=== PATIENT | male | born 1955 | race Caucasian/White ===

== ENCOUNTER 2017-02-10 08:27 | Inpatient (IN) | payer MEDICARE ==
--- NOTE | ~2017-02-10 | HEMODYNAMI ---
PATIENT:SHA LAY JR MEDICAL RECORD: [id number] : 53 LOCATION:[facility] [address] [id number] ADMISSION DATE: 02/10/17 Generatedon:02/12/201715:52 Patient name: SHA LAY Patient #: [id number] SSN: D OB: 1955 Date of study: 02/12/2017 Page: Of Hemodynamic Procedure Report Patient Data Patient Demographics Procedure consent was obtained First Name: SHA Gender: Male Last Name: ROSANNE Suffix: Patient #: [id number] : 1955 Age: 61 year(s) Accession #: Race: Unknown [id number] Additional ID: [id number] Contact details Address: [address] [place] [address] [address] State: [place] City: [place] Zip code: [address] Admission Admission Data Admission Date: 02/10/2017 Admission Time: 12:48 Room #: .2130 Procedure Procedure Types Cath Procedure Diagnostic Procedure LHC LHC w/Coronaries Miscellaneous Procedures Moderate Sedation up to 15 minutes Peripheral Cath Diagnostic Procedure Abd/Extremity Aortagram Procedure Description Procedure Date Procedure Date: 02/12/2017 Procedure Start Time: 15:10 Procedure End Time: 15:49 Procedure Staff Name Function Issa Joseph MD Performing Physician Scarlett Neves RT Scrub Oz Benitez RN Nurse Isaias Kee RT Monitor Yanely Gieger RT Monitor Reji Hernandez RN Nurse Procedure Data Cath Procedure Fluoroscopy Diagnostic fluoroscopy Total fluoroscopy Time: 5.5 time: 5.5 min min Diagnostic fluoroscopy Total fluoroscopy dose: 710 dose: 710 mGy mGy Contrast Material Contrast Material Type Amount (ml) Isovue 300 103 Entry Location Entry Primary Successful Side Size Upsize Upsize Entry Closure Lyle ccessful Closure Location (Fr) 1 (Fr) 2 (Fr) Remarks Device Remarks Radial Right 6 Fr Mechanical TR band artery Short Compression Femoral Left 5 Fr Exoseal artery Femoral Right 5 Fr Exoseal artery Estimated blood loss: 10 ml Diagnostic catheters Device Type Used For End Catheter Placement Terumo 5Fr Uday 110cm Procedure catheter Cordis 5Fr 3DRC Catheter Procedure (MP) Cordis 5Fr 3DRC Catheter Procedure (MP) Cordis 5Fr JL 4.0 Procedure Catheter (MP) Cordis 5Fr Pigtail Ventriculography Catheter (MP) Procedure Complications No complications Procedure Medications Medication Administration Route Dosage 0.9% NaCl I.V. 100 ml/hr Oxygen NC 2 l/min Heparin Flush Bag added to field 2 bags (1000units/500ml NS) Lidocaine 2% added to field 20 Radial Cocktail 1 syringe (Verapomil 2mg/Nitro 400mcg/Heparin 1500units) Versed I.V. 1 mg Fentanyl I.V. 50 mcg Versed I.V. 0.5 mg Fentanyl I.V. 25 mcg Radial Cocktail I.A. 1 syringe (Verapomil 2mg/Nitro 400mcg/Heparin 1500units) Fentanyl I.V. 25 mcg Fentanyl I.V. 25 mcg Hemodynamics Rest Heart Rate: 101 (bpm) Pressure Samples Time Site Value (mmHg) Purpose Heart Use Rate(bpm) 15:36 LV 109/9,23 Snapshot 92 15:37 AO 123/73(94) Pullback 92 15:37 LV 116/13,29 Pullback 92 Gradients Valve Time Site 1 Site 2 Mean SEP/DFP Peak To Heart Use (mmHg) (sec/min) Peak Rate (mmHg) (bpm) Aortic 15:37 LV AO 92 Aortic 15:37 LV AO 0 7 0 92 116/13,29 123/73(94) Calculations Valve P-P Mean Valve Index Valve Source Name Gradient Area Flow (cm2) Aortic 0 0 0 0 Snapshots Pre Cath Intra NCS Post Cath Vital Signs Time Heart Resp SPO2 etCO2 NIBP (mmHg) Rhythm Pain Sedation Rate (ipm) (%) (mmHg) Status Level (bpm) 14:56:39 101 32 98 33.1 117/84(99) NSR 0 (11) 10(A) , No pain 15:01:14 100 30 100 9 114/86(102) NSR 0 (11) 10(A) , No pain 15:05:50 97 24 96 12.8 111/71(93) NSR 0 (11) 10(A) , No pain 15:10:24 96 19 76 21 109/77(89) NSR 0 (11) 10(A) , No pain 15:15:01 94 22 89 0 107/67(85) NSR 0 (11) 10(A) , No pain 15:19:36 92 22 97 0 111/69(90) NSR 0 (11) 10(A) , No pain 15:24:10 92 19 94 0 109/74(95) NSR 0 (11) 10(A) , No pain 15:28:44 93 23 94 0 106/76(89) NSR 0 (11) 10(A) , No pain 15:33:19 93 16 95 10.5 111/67(86) NSR 0 (11) 10(A) , No pain 15:37:53 92 18 94 10.5 105/76(92) NSR 0 (11) 10(A) , No pain 15:42:26 88 19 97 0 107/74(89) NSR 0 (11) 10(A) , No pain 15:46:58 91 17 98 24.1 108/75(92) NSR 0 (11) 10(A) , No pain Medications Time Medication Route Dose Verified Delivered Reason Notes Effectiveness by by 15:00:56 0.9% NaCl I.V. 100 Oz Oz Per ml/hr Emmanuel Benitez physician RN RN 15:01:10 Oxygen NC 2 l/min Oz Oz Per Emmanuel Benitez physician RN RN 15:01:30 Heparin Flush added 2 bags Oz Oz used for Bag to Emmanuel Benitez procedure (1000units/500ml [facility] RN RN NS) 15:01:43 Lidocaine 2% added 20ml Oz Oz for local to vial Lorigan Emmanuel anesthetic field RN RN 15:02:29 Radial Cocktail 1 Oz Zo for (Verapomil syringe Lorigan Lorigan vasodilation 2mg/Nitro RN RN 400mcg/Heparin 1500units) 15:02:59 Versed I.V. 1 mg Oz Oz for sedation Emmanuel Benitez RN RN 15:03:11 Fentanyl I.V. 50 mcg Oz Oz for sedation Emmanuel Benitez RN RN 15:13:20 Versed I.V. 0.5 mg Oz Oz for sedation Emmanuel Benitez RN RN 15:13:30 Fentanyl I.V. 25 mcg Oz Oz for sedation Emmanuel Benitez RN RN 15:15:09 Radial Cocktail I.A. 1 Oz Issa for (Verapomil syringe Emmanuel Joseph MD vasodilation 2mg/Nitro RN 400mcg/Heparin 1500units) 15:26:17 Fentanyl I.V. 25 mcg Oz Oz for sedation Emmanuel Benitez RN RN 15:34:41 Fentanyl I.V. 25 mcg Oz Oz for sedation Emmanuel Benitez RN veterinary practitioner Log Time Note 14:30:22 Isaias Kee RT(R) sent for patient. Start room use. 14:36:24 Time tracking: Regular hours 14:36:28 Plan of Care:Hemodynamics will remain stable., Cardiac rhythm will remain stable., Comfort level will be maintained., Respiratory function will remain adequate., Patient/ family verbilizes understanding of procedure., Procedure tolerated without complication., Recovers from procedure without complications.. 14:50:00 Patient received from Med II to CCL 1 Alert and oriented. Tansferred to table in Supine position. 14:50:03 Warm blankets applied, and prem hugger turned on for patient comfort. 14:50:04 Correct patient and procedure confirmed by team. 14:50:10 Signed procedure consent form obtained from patient. 14:50:11 ECG and BP/O2 sat monitors applied to patient. 14:55:51 Vital chart was started 14:55:53 Baseline sample Acquired. 14:55:56 Rhythm: sinus rhythm 14:55:57 Full Disclosure recording started 14:56:03 H&P Date Dictated: 02/11/2017 Within 30 days and on chart.. 14:56:10 Pre-procedure instructions explained to patient. 14:56:10 Pre-op teaching completed and patient verbalized understanding. 14:56:12 Family unavailable. 14:56:13 Patient NPO since Midnight. 14:56:15 Is the patient allergic to Iodine/contrast media? No. 14:56:18 Is patient on blood thinner?No 14:57:07 Patient diabetic? No. 14:57:11 Previous problem with sedation/anesthesia? No ? 14:57:13 Snore? No 14:57:16 Sleep apnea? No 14:57:19 Deviated septum? No 14:57:22 Opens mouth fully? Yes 14:57:25 Sticks out tongue? Yes 14:57:28 Airway obstruction? No ? 14:57:35 Dentures? No ? 14:57:39 Pre procedure: right dorsailis pedis pulse 1+ Palpable, but thready & weak; easily obliterated 14:57:52 Patient pain scale 0/10 ?. 14:58:06 IV patent on arrival in left forearm with 0.9% NaCl at O. 14:58:22 Lab results completed and on chart. 14:58:39 Right Radial & Right Groin area was prepped with chlora-prep and draped in sterile fashion 14:58:42 Alarms reviewed by R. N. 14:58:42 Sharps counted by scrub and verified by R.N. 14:59:26 --------ALL STOP TIME OUT------ 14:59:27 Final Timeout: patient, procedure, and site verified with staff and physician. All members of the team are in agreement. 14:59:33 Right Radial & Right Groin site verified by team. 14:59:40 Physical assessment completed. ASA score P 2 - A patient with mild systemic disease as per Issa Joseph MD. 14:59:44 Sedation plan: IV Moderate Sedation Versed, Fentanyl 15:00:56 0.9% NaCl 100 ml/hr I.V. was administered by Oz Benitez RN; Per physician; 15:01:10 Oxygen 2 l/min NC was administered by Oz Benitez RN; Per physician; 15:01:30 Heparin Flush Bag (1000units/500ml NS) 2 bags added to field was administered by Oz Benitez RN; used for procedure; 15:01:43 Lidocaine 2% 20ml vial added to field was administered by Oz Benitez RN; for local anesthetic; 15:02:29 Radial Cocktail (Verapomil 2mg/Nitro 400mcg/Heparin 1500units) 1 syringe was administered by Oz Benitez RN; for vasodilation; 15:02:59 Versed 1 mg I.V. was administered by Oz Benitez RN; for sedation; 15:03:11 Fentanyl 50 mcg I.V. was administered by Oz Benitez RN; for sedation; 15:10:26 Procedure started. 15:10:36 Local anesthetic to right radial artery with Lidocaine 2% by Issa Joseph MD.INITIAL ACCESS ONLY 15:12:31 A 6 Fr Short sheath was inserted into the Right Radial artery 15:13:20 Versed 0.5 mg I.V. was administered by Oz Benitez RN; for sedation; 15:13:30 Fentanyl 25 mcg I.V. was administered by Oz Benitez RN; for sedation; 15:14:49 A Terumo 5Fr Uday 110cm catheter was advanced over the wire and used for Procedure. 15:15:09 Radial Cocktail (Verapomil 2mg/Nitro 400mcg/Heparin 1500units) 1 syringe I.A. was administered by Issa Joseph MD; for vasodilation; 15:15:24 Unable to advance catheter due to radial loop. Moving to Femoral approach. 15:15:34 Local anesthetic to right femoral artery with Lidocaine 2% by Issa Joseph MD.ADDITIONAL ACCESS 15:15:39 Use device set Radial Dx 15:15:41 Tegaderm 4 x 4 opened to sterile field. 15:15:42 Acist Manifold opened to sterile field. 15:15:42 Acist Hand Control opened to sterile field. 15:15:43 Acist Syringe opened to sterile field. 15:15:44 Medline Cath Pack opened to sterile field. 15:15:44 Bag Decanter opened to sterile field. 15:15:44 Terumo 6Fr Slender Glidesheath opened to sterile field. 15:15:45 St Aristeo 260cm J .035 wire opened to sterile field. 15:15:45 MBrace Wrist Support opened to sterile field. 15:15:55 Terumo 5Fr [place] Sheath opened to sterile field. 15:15:59 Use device set Multipack Set 15:16:01 Diagnostic Infinity 5Fr Multipack catheter opened to sterile field. 15:20:03 A 5 Fr sheath was inserted into the Left Femoral artery 15:21:00 A 5 Fr sheath was inserted into the Right Femoral artery 15:21:00 Terumo ANGLE 260cm glide wire opened to sterile field. 15:21:11 A Cordis 5Fr 3DRC Catheter (MP) was advanced over the wire and used for Procedure. 15:21:17 glide wire wire advanced. 15:22:40 right illiac occluded. 15:23:15 Catheter removed. 15:23:32 Left groin area was prepped with chlora-prep and draped in sterile fashion 15:23:48 Local anesthetic to left femerol artery with Lidocaine 2% by Issa Joseph MD.ADDITIONAL ACCESS 15:26:17 Fentanyl 25 mcg I.V. was administered by Oz Benitez RN; for sedation; 15:28:07 Terumo 5Fr [place] Sheath opened to sterile field. 15:30:14 A Cordis 5Fr 3DRC Catheter (MP) was advanced over the wire and used for Procedure. 15:31:40 RCA angiography performed. 15:31:58 Catheter removed. 15:32:20 A Cordis 5Fr JL 4.0 Catheter (MP) was advanced over the wire and used for Procedure. 15:34:36 Catheter removed. 15:34:41 Fentanyl 25 mcg I.V. was administered by Oz Benitez RN; for sedation; 15:35:01 A Cordis 5Fr Pigtail Catheter (MP) was advanced over the wire and used for Ventriculography. 15:36:44 EF : 10 % 15:38:40 Abdominal Aortagram was performed. 15:41:26 Catheter removed. 15:42:01 Cordis 5Fr Exoseal opened to sterile field. 15:42:01 Cordis 5Fr Exoseal opened to sterile field. 15:42:02 Terumo TR Band Standard opened to sterile field. 15:42:41 Sheath removed intact; hemostasis achieved with Exoseal to the Left Femoral artery. 15:44:17 Sheath removed intact; hemostasis achieved with Exoseal to the Right Femoral artery. 15:45:42 Sheath removed intact; hemostasis achieved with Mechanical Compression to the Right Radial artery. 15:45:46 Procedure ended.(Physican Out) 15:46:39 Fluoroscopy time 05.50 minutes. 15:46:44 Fluoroscopy dose: 710 mGy 15:46:44 Flurop Dose total: 710 15:46:49 Contrast amount:Isovue 300 103ml. 15:46:51 Sharps counted by scrub and verified by R.N. 15:47:21 TR band inflated with 11cc of air. 15:47:24 Insertion/operative site no bleeding no hematoma. 15:47:28 Post-op/insertion site Right Femoral artery dressed using a 4 x 4 and Tegaderm. 15:47:32 Post-op/insertion site Left Femoral artery dressed using a 4 x 4 and Tegaderm. 15:47:36 Post Procedure Pulses reassessed and unchanged 15:47:45 Post-procedure physical assessment completed. ASA score P 2 - A patient with mild systemic disease as per Issa Joseph MD. 15:47:50 Post-procedure physical assessment completed. ASA score P 3 - A patient with severe systemic disease as per Issa Joseph MD. 15:47:56 Post procedure rhythm: unchanged. 15:47:59 Estimated blood loss: 10 ml 15:48:03 Post procedure instruction explained to patient.Patient verbalizes understanding. 15:48:48 Procedure type changed to Cath procedure, Diagnostic procedure, LHC, LHC w/Coronaries, Miscellaneous Procedures, Moderate Sedation up to 15 minutes, Peripheral Cath Diagnostic Procedure, Abd/Extremity, Aortagram 15:48:50 Procedure and supply charges have been captured, reviewed, submitted and are correct. 15:49:36 Procedure Complication : No complications 15:49:39 Vital chart was stopped 15:49:40 See physician's report for complete and final results. 15:49:41 Report given to Pre/Post Procedure Room. 15:49:46 Patient transfered to Pre/Post Procedure Room with Stretcher. 15:49:49 Procedure ended. 15:49:49 Full Disclosure recording stopped 15:49:52 End room use (Document Last) Device Usage Item Name Manufacture Quantity Catalog Hospital Part Current Minimal Lot# / Number Charge Number Stock Stock Serial# Code Terumo 5Fr Terumo 1 [id number] [id number] [id number] 817357 5 Uday 110cm catheter Tegaderm 4 3M 1 [id number] 588375 938934 5 x 4 Acist Acist 1 44802 786306 120858 090240 5 Manifold Medical [employer] Inc Acist Hand Acist 1 13395 818011 410756 141734 5 Control Medical Systems Inc Acist Acist 1 54057 845795 800717 664326 20 Syringe Medical Systems Inc Medline Cardinal 1 [id number] 714740 07773 301716 5 Cath Pack Health Bag Microtek 1 2001S [id number] 05924 262370 5 Decanter Medical Inc. Terumo 6Fr Terumo 1 [id number] 517722 367342 059777 [address] St Aristeo 1 [id number] 908096 726981 080499 30 260cm J .035 wire MBrace Advanced 1 140-0250-00 147748 00886 159607 5 Wrist Vascular Support Dynamics Terumo 5Fr Terumo 2 [id number] 326755 789192 382343 40 [place] Sheath Diagnostic Cardinal 1 [id number] 689100 95508 221368 30 Infinity Health 5Fr Multipack catheter Terumo Terumo 1 [id number] 344325 897712 351765 5 ANGLE 260cm glide wire Cordis 5Fr Cardinal 1 853844 5 3DRC Health Catheter (MP) Cordis 5Fr Cardinal 1 748031 5 JL 4.0 Health Catheter (MP) Cordis 5Fr Cardinal 1 815489 5 Pigtail Health Catheter (MP) Cordis 5Fr Cardinal 2 EX500 880350 429761 031474 10 Exoseal Health Terumo TR Terumo 1 [id number] 584641 255921 311888 40 Band Standard Signature Audit [place] Stage Time Signature Unsigned Intra-Procedure 02/12/2017 Yanely Geiger 3:52:36 PM RT(R) Signatures Monitor : Isaias Kee RT Signature : Date : Time : Monitor : Yanely Geiger Signature : RT Date : Time : [facility] [address] [place] [address]
[2017-02-10 09:20] LABS: ALKALINE PHOSPHATASE 121 U/L (46-116); ALT (SGPT) 20 U/L (10-68); CALC OSMOLALITY 276 mosm/kg (275-300); CALCIUM 9.2 mg/dL (8.5-10.1); CARBON DIOXIDE 26.9 mmol/L (21.0-32.0); CHLORIDE - SERUM 99 mmol/L (98-107); CREATININE - SERUM 0.9 mg/dL (0.6-1.3); GLUCOSE 98 mg/dL (74-106); POTASSIUM - SERUM 3.4 mmol/L (3.5-5.1); PROTEIN - SERUM 8.2 g/dL (6.4-8.2); SODIUM 140 mmol/L (136-145); UREA NITROGEN 7 mg/dL (7-18); eGFR NON AFRICAN AMERICAN > 90 mL/min (90-120)
[2017-02-10 09:27] LABS: INR 1.19 (0.85-1.17); PROTIME 14.9 SECONDS (11.6-15.0)
[2017-02-10 09:52] LABS: MAGNESIUM - SERUM 1.9 mg/dL (1.8-2.4); TROPONIN-I 0.034 ng/mL (0.000-0.060)
[2017-02-10 11:06] LABS: BASOPHILS 0.2 % (0-2); EOSINOPHILS 1.5 % (0-7); HEMATOCRIT 46.7 % (42.0-54.0); HEMOGLOBIN 15.4 g/dL (13.5-17.5); IMMATURE GRANULOCYTES 0.4 % (0-5); LYMPHOCYTES 17.9 % (15-50); MCH 36.2 pg (26.0-34.0); MCV 109.6 fL (80.0-100.0); MEAN PLATELET VOLUME 10.7 fL (7.4-10.4); MONOCYTES 8.4 % (2-11); NEUTROPHILS 71.6 % (40-80); RBC 4.26 10x6/uL (4.20-6.10); RDW 15.2 % (11.5-14.5); WBC 8.5 10x3/uL (4.8-10.8)
[2017-02-10 11:10] LABS: PLATELET COUNT 209 10x3/uL (130-400)
[2017-02-10 11:59] LABS: APPEARANCE CLEAR (CLEAR); COLOR DK YELLOW (YELLOW); SPECIFIC GRAVITY 1.015 (1.005-1.020)
[2017-02-10 12:00] LABS: BACTERIA MANY /hpf (NONE SEEN); BILIRUBIN NEGATIVE (NEGATIVE); EPITHELIAL CELLS 0-5 /hpf (0-5); GLUCOSE NEGATIVE (NEGATIVE); KETONE NEGATIVE (NEGATIVE); MUCUS <1+ /lpf (NONE SEEN); NITRITE NEGATIVE (NEGATIVE); PROTEIN NEGATIVE (NEGATIVE); WHITE CELLS - URINE 25-50 /hpf (0-5)
--- NOTE | 2017-02-10 14:08 | NUR ---
ARRIVE TO ROOM VIA WHEELCHAIR FROM ER. ALERT AND ORIENTED X4. AMBULATES FROM WHEELCHAIR TO BED. GAIT STEADY. BP-138/79, P-119, R-18, O2-94% RA. DENIES ANY PAIN. REPORTS PAIN IN LEGS WHEN STANDING. DENIES SOB. REFUSE SCDs. AMBULATORY. CONTINUE ADMISSION PROCESS. IV RT FA SL. DRESSING CLEAN DRY INTACT. BED LOCKED AND LOW. CALL LIGHT IN REACH. TWO SIDERAILS UP.
--- NOTE | 2017-02-10 14:14 | NUR ---
DENIES HAVING ANY HOME MEDICATIONS. DENIES HAVING A PHARMACY. HAS [facility] PRESCRIPTION CARD. IF [facility] ACCEPTS [facility] CARDS THEN WILL USE THAT PHARMACY.
[2017-02-10 14:39] VITALS: BP 138/79; BMI 26.5
[2017-02-10 16:42] VITALS: BP 138/79
--- NOTE | 2017-02-10 19:22 | NUR ---
PT RESTING IN BED. MVI AT 30 TO RIGHT FOREARM. PT C/O IV PUMP BEEPING. PT STATES IF IT CONTINUES TO BEEP HE WILL TAKE IT OFF HIS SELF. ASKED PT TO PLEASE CALL ME IF IT BEEPS AND I WILL DO MY BEST TO KEEP IT QUITE. PT DENIES ANY OTHER NEEDS. NO S/S OF DISTRESS. WILL CPOC
[2017-02-10 20:55] VITALS: BP 126/78
--- NOTE | 2017-02-10 21:05 | NUR ---
PT RESTING IN BED. PT RESTING IN BED. NO S/S OF DISTRESS. MVI INFUSING TO RIGHT FOREARM. NO COMPLAINTS SINCE SPOKE ABOUT IV POLE BEEPING. PT DENIES ANY NEEDS. NO S/S OF DISTRESS.WILL CPOC
[2017-02-10 23:58] VITALS: BP 124/79
--- NOTE | 2017-02-11 02:48 | NUR ---
PT RESTING IN BED. 600 ML OF CLEAR YELLOW URINE EMPTIED. PT DENIES ANY NEEDS AT THIS TIME. NO S/S OF DISTRESS. BED LOW AND CALL LIGHT IN REACH. WILL CPOC
[2017-02-11 05:07] VITALS: BP 125/71
[2017-02-11 05:26] LABS: BASOPHILS 0.3 % (0-2); EOSINOPHILS 1.2 % (0-7); HEMATOCRIT 39.3 % (42.0-54.0); HEMOGLOBIN 12.8 g/dL (13.5-17.5); IMMATURE GRANULOCYTES 0.3 % (0-5); LYMPHOCYTES 17.6 % (15-50); MCH 35.3 pg (26.0-34.0); MCHC 32.6 g/dL (31.0-37.0); MCV 108.3 fL (80.0-100.0); MEAN PLATELET VOLUME 10.3 fL (7.4-10.4); MONOCYTES 9.9 % (2-11); NEUTROPHILS 70.7 % (40-80); PLATELET COUNT 181 10x3/uL (130-400); RBC 3.63 10x6/uL (4.20-6.10); WBC 7.6 10x3/uL (4.8-10.8)
[2017-02-11 05:39] LABS: ALBUMIN 2.6 g/dL (3.4-5.0); ALKALINE PHOSPHATASE 84 U/L (46-116); CALCIUM 8.5 mg/dL (8.5-10.1); CARBON DIOXIDE 29.6 mmol/L (21.0-32.0); CHLORIDE - SERUM 99 mmol/L (98-107); CREATININE - SERUM 0.9 mg/dL (0.6-1.3); GLUCOSE 102 mg/dL (74-106); POTASSIUM - SERUM 3.4 mmol/L (3.5-5.1); PROTEIN - SERUM 6.5 g/dL (6.4-8.2); SODIUM 138 mmol/L (136-145); eGFR NON AFRICAN AMERICAN > 90 mL/min (90-120)
[2017-02-11 05:44] LABS: ALT (SGPT) 13 U/L (10-68); CALC OSMOLALITY 274 mosm/kg (275-300); UREA NITROGEN 10 mg/dL (7-18)
--- NOTE | 2017-02-11 06:55 | NUR ---
PT RESTING IN BED. MVI INFUSING AT 30 TO RIGHT FOREARM. PT DENIES ANY NEEDS AT THIS TIME. NO S/S OF DISTRESS. WILL CPOC
[2017-02-11 08:00] VITALS: BP 136/83
[2017-02-11 10:22] VITALS: BMI 25.9
[2017-02-11 12:14] VITALS: BP 140/73
[2017-02-11 17:13] VITALS: BP 118/82
--- NOTE | 2017-02-11 17:31 | NUR ---
ALERT AND ORIENTED X4. SITTING UP IN BED. RT FA IV INFUSING BANANA BAG AT 30ml/HR ORDERED. SINUS TACH 113bpm ON TELEMETRY. CONSENTS FOR CARGO TRIMMER SIGNED ON CHART. DENIES ANY NEEDS. CONTINUE PLAN OF CARE. BED LOCKED AND LOW. CALL LIGHT IN REACH. TWO SIDERAILS UP.
--- NOTE | 2017-02-11 19:15 | NUR ---
ROUNDING NOTE: PT IS ALERT, AWAKE AND ORIENTED X 3, SITTING UP IN BED WATCHING TV AT THE CHANGE OF SHIFT. PT WITH BANANA BAG RUNNING AT 30CC/HR TO RIGHT FOREARM. PLAN IS FOR PT TO HAVE CARDIAC CATH IN THE AM, SO HE WILL BE NPO AFTER MN. CONSENTS ARE IN THE CHART. PT IS SINUS TACHY ON THE MONITOR. HE IS REQUESTING SLEEPING MEDS TO BE GIVEN LATER. PT ALSO INFORMING THIS NURSE THAT HE IS PLANNING TO REFUSE HIS 2030 LASIX DOSE B/C HE DOESN'T WANT TO BE UP ALL NIGHT URINATING. THE LASIX IS ORDERED Q8HRS CURRENTLY. PT UNDERSTANDS THE RISK OF REFUSING HIS DIURETIC AND HE CONTINUES TO REFUSE THE NIGHT TIME DOSE OF LASIX. WILL CONT TO MONITOR.
[2017-02-11 20:47] VITALS: BP 119/84
--- NOTE | 2017-02-11 22:00 | NUR ---
FEDERAL APPELLATE CLERK HELPED THE PATIENT TO TAKE A SHOWER. AFTERWARDS, PT IS REFUSING TO BE HOOKED BACK UP TO HIS IVF. HE IS AWARE THAT HE WILL NEED TO BE PLACED ON IVF AGAIN THE MORNING FOR HIS CARDIAC CATH PROCEDURE. PT AGREES TO THIS. PT ALSO CONTINUES TO REFUSE HIS 2030 DOSE OF LASIX B/C HE "DOESN'T WANT TO BE UP ALL NIGHT PEEING." HE WILL TAKE HIS 0430 DOSE OF LASIX. PT ALSO REQUESTED RESTORIL TO HELP HIM SLEEP, PT MEDICATED PER MD ORDER. PT CONTINUES TO BE IN SINUS TACHY ON TELE. PT DENIES ANY SOB OR CHEST PAIN AT THIS TIME. WILL CONT TO MONITOR.
[2017-02-12 00:52] VITALS: BP 92/61
[2017-02-12 04:37] VITALS: BP 118/67
--- NOTE | 2017-02-12 05:36 | NUR ---
PT HAS REFUSED BOTH DOSES OF IV LASIX DURING MY SHIFT. THE 2029 DOSE WAS REFUSED B/C HE DIDN'T WANT TO "BE UP ALL NIGHT PEEING" AND THE 0430 DOSE WAS REFUSED B/C HE DOESN'T WANT TO "PEE ALL OVER THEM DURING THE CATH WHEN HE HAS HIS PROCEDURE THIS MORNING." I EDUCATED THE PATIENT ON THE IMPORTANCE OF MEDICATION COMPLIANCE, BUT HE STILL CONTINUES TO REFUSE HIS LASIX. WILL CONT TO MONITOR.
[2017-02-12 05:49] LABS: BASOPHILS 0.3 % (0-2); EOSINOPHILS 1.8 % (0-7); HEMATOCRIT 41.5 % (42.0-54.0); HEMOGLOBIN 13.8 g/dL (13.5-17.5); IMMATURE GRANULOCYTES 0.2 % (0-5); LYMPHOCYTES 21.8 % (15-50); MCH 35.8 pg (26.0-34.0); MCHC 33.3 g/dL (31.0-37.0); MCV 107.8 fL (80.0-100.0); MEAN PLATELET VOLUME 10.2 fL (7.4-10.4); MONOCYTES 9.4 % (2-11); NEUTROPHILS 66.5 % (40-80); PLATELET COUNT 176 10x3/uL (130-400); RBC 3.85 10x6/uL (4.20-6.10); RDW 15.1 % (11.5-14.5); WBC 6.5 10x3/uL (4.8-10.8)
[2017-02-12 06:26] LABS: ALBUMIN 2.5 g/dL (3.4-5.0); ALKALINE PHOSPHATASE 90 U/L (46-116); ALT (SGPT) 14 U/L (10-68); BILIRUBIN - TOTAL 1.14 mg/dL (0.2-1.3); CALC OSMOLALITY 275 mosm/kg (275-300); CALCIUM 8.5 mg/dL (8.5-10.1); CARBON DIOXIDE 30.1 mmol/L (21.0-32.0); CHLORIDE - SERUM 99 mmol/L (98-107); CREATININE - SERUM 0.9 mg/dL (0.6-1.3); GLUCOSE 98 mg/dL (74-106); POTASSIUM - SERUM 3.5 mmol/L (3.5-5.1); PROTEIN - SERUM 6.8 g/dL (6.4-8.2); SODIUM 138 mmol/L (136-145); eGFR NON AFRICAN AMERICAN > 90 mL/min (90-120)
[2017-02-12 06:27] LABS: UREA NITROGEN 13 mg/dL (7-18)
[2017-02-12 08:14] VITALS: BP 124/73
[2017-02-12 12:10] VITALS: BP 113/70
[2017-02-12 14:22] LABS: HEPATITIS C ANTIBODY >11.0 (0.0-0.9)
--- NOTE | 2017-02-12 14:31 | NUR ---
ALERT AND ORIENTED X4. RESTING IN BED. UPSET ABOUT PROCEDURE NOT DONE YET. PATIENT STATES, "IF THEY DON'T HURRY UP I'M GONNA CALL THE A CAB AND JUST LEAVE." CALL [facility]. JEFFREY FROM [facility] COMES TO TALK WITH PATIENT. PLAN TO GO IN 30 MINS. PRE-OP COMPLETE. CONTINUE PLAN OF CARE. BED LOCKED AND LOW. CALL LIGHT IN REACH.
--- NOTE | 2017-02-12 14:45 | NUR ---
TAKEN TO BROADCAST PRODUCER VIA BED. CONTINUE PLAN OF CARE AND SAFETY PRECAUTIONS.
--- NOTE | 2017-02-12 16:17 | NUR ---
ALERT AND ORIENTED X4. ARRIVE BACK TO ROOM VIA BED FROM AGRISCIENCE INSTRUCTOR. RT WRIST TR BAND INTACT. FREE FROM BLEEDING AT SITE. ON TOP OF HAND SOME BLOOD SEEN. NOT ACTIVELY BLEEDING. RT AND LEFT GROIN DRESSING CLEAN DRY INTACT. FREE FROM BLEEDING. FREE FROM HEMATOMA. FLAT FOR 2HOURS. IV INFUSING NS ORDERED. PULSES EQUAL BILATERALLY. BP-121/81, P-95, O2-100% WITH 2L NC. R-18. SINUS RHTHYM WITH PVCs ON TELEMETRY. HOB 0. BED LOCKED AND LOW. CALL LIGHT IN REACH. TWO SIDERAILS UP.
[2017-02-12 19:00] VITALS: BP 112/67
--- NOTE | 2017-02-12 19:15 | NUR ---
ROUNDING NOTE: PT IS AWAKE AND SITTING UP IN BED WATCHING TV AT THE CHANGE OF SHIFT. PT'S IV IS OUT AND HE STATES THAT HE DOES NOT WANT A NEW ONE PLACED B/C HE IS JUST GOING TO REFUSE THE IV LASIX ANYWAYS. PT UNDERWENT CARDIAC CATH TODAY. EF WAS NOTED TO BE 10% WITH DILATED ISCHEMIC CARDIOMYOPATHY. NO INTERVENTIONS WERE DONE, MD OPTING FOR MEDICAL MANAGEMENT. PT HAS BILATERAL GROIN SITES, C/D/I, WITH STRONG BIALTERAL FEMORAL PULSES. PT ALSO W/ RIGHT WRIST TR BAND, C/D/I, WITH STRONG RIGHT RADIAL PULSE. PT DENIES ANY QUESTIONS, COMPLAINTS, OR NEEDS- WILL CONT TO MONITOR.
--- NOTE | 2017-02-12 23:00 | NUR ---
REMOVED 1/2 OF AIR FROM TR BAND, NO BLEEDING AND GOOD RADIAL PULSE. 15 MINUTES LATER REMOVED THE REST OF THE AIR, NO BLEEDING, STRONG RADIAL PULSE. 15 MINUTES LATER, TR BAND REMOVED. PT TOLERATED WELL. NO BLEEDING, RADIAL PULSE STRONG. DSG PLACED ON SITE. WILL CONT TO MONITOR.
[2017-02-13] VITALS: BP 99/64
[2017-02-13 04:00] VITALS: BP 100/74
[2017-02-13 05:08] LABS: BASOPHILS 0.5 % (0-2); EOSINOPHILS 2.3 % (0-7); HEMATOCRIT 40.5 % (42.0-54.0); HEMOGLOBIN 13.2 g/dL (13.5-17.5); IMMATURE GRANULOCYTES 0.2 % (0-5); LYMPHOCYTES 24.1 % (15-50); MCH 35.3 pg (26.0-34.0); MCHC 32.6 g/dL (31.0-37.0); MCV 108.3 fL (80.0-100.0); MEAN PLATELET VOLUME 10.7 fL (7.4-10.4); NEUTROPHILS 62.9 % (40-80); PLATELET COUNT 159 10x3/uL (130-400); RBC 3.74 10x6/uL (4.20-6.10)
[2017-02-13 05:26] LABS: ALBUMIN 2.5 g/dL (3.4-5.0); ALKALINE PHOSPHATASE 88 U/L (46-116); ALT (SGPT) 16 U/L (10-68); BILIRUBIN - TOTAL 0.92 mg/dL (0.2-1.3); CALC OSMOLALITY 280 mosm/kg (275-300); CALCIUM 8.9 mg/dL (8.5-10.1); CARBON DIOXIDE 29.3 mmol/L (21.0-32.0); CHLORIDE - SERUM 102 mmol/L (98-107); CREATININE - SERUM 0.9 mg/dL (0.6-1.3); GLUCOSE 86 mg/dL (74-106); PROTEIN - SERUM 6.9 g/dL (6.4-8.2); SODIUM 141 mmol/L (136-145); UREA NITROGEN 14 mg/dL (7-18); eGFR NON AFRICAN AMERICAN > 90 mL/min (90-120)
[2017-02-13 05:31] LABS: POTASSIUM - SERUM 4.4 mmol/L (3.5-5.1)
--- NOTE | 2017-02-13 07:44 | NUR ---
AWAKE NO DISTRESS. PAOLO GROIN SITES CLEAN AND DRY WITHOUT ANY BLEEDING NOR EDEMA.
[2017-02-13 08:00] VITALS: BP 115/73
[2017-02-13 12:00] VITALS: BP 111/78
--- NOTE | 2017-02-13 12:58 | NUR ---
* Is the patient Alert and Oriented? Yes 0 * How many steps to enter\exit or inside your home? 3 0 * PCP None 0 * [facility] [address] * Preadmission Environment Home Alone 0 * ADLs Independent 0 * List name and contact numbers for known caregivers / representatives who currently or will assist patient after discharge: Brother Aurora Zuñiga [phone] 0 * Additional services required to return to the preadmission environment? No 0 * Can the patient safely return to the preadmission environment? Yes 0 * Has this patient been hospitalized within the prior 30 days at any hospital? No Patient Name: SHA ZUÑIGA Admission Status: ER Accout number: [id number] Admission Date: 02-10-2017 : 1955 Admission Diagnosis:LOCALIZED EDEMA Attending: MALCOLM ISABEL Current LOS: 3 Planned Disposition: Home Primary Insurance: MEDICARE A & B Discharge Planning Comments: CM met with patient to assess dc plans/needs. Patient states he lives alone & is independent with all ADL's & AIDL's. He denies requiring any assistive devices for mobility and has not had home health services in the past. At dc, he states he will return home. He states his brother, Mic, will drive him home and assist with any needs that may come up. No needs identified or verbalized at this time. CM will follow. Student Teacher: Shanelle Diane
[2017-02-13] MEDS ORDERED: LISINOPRIL10 MG PO (13:40)
[2017-02-13] MEDS ORDERED: COREG 3.1253.125 MG PO (13:40)
[2017-02-13] MEDS ORDERED: K-DUR20 MEQ PO (13:40)
[2017-02-13] MEDS ORDERED: LASIX40 MG PO (13:40)
--- NOTE | 2017-02-13 16:00 | NUR ---
DISCHARGE INSTRUCTIONS GIVEN TO PATIENT AND FAMILY. BOTH VERBRALIZE UNDERSTANDING. PT IS DRESSED. TO CAR VIA WC.
--- NOTE | 2017-02-19 10:07 | EC ---
PATIENT:SHA LAY JR DATE OF SERVICE: 02/10/17 SEX: M MEDICAL RECORD: [id number] DATE OF : 53 LOCATION:D.M2 D.213 AGE OF PATIENT: 61 ADMISSION DATE: 02/10/17 REFERRING PHYSICIAN: INTERPRETING PHYSICIAN: IVONNE MALONEY MD ECHOCARDIOGRAM REPORT ECHO CHARGES 4 ECHO COMPLETE CLINICAL DIAGNOSIS: NEW ONSET CHF ECHOCARDIOGRAPHIC MEASUREMENTS (adult normal given) AC root (d.<3.7cm) 3.2 cm LV Septum d (<1.2 cm> 1.2 cm Valve Excursion 2.0 cm LV Septum (systole) 1.5 cm Left Atria (s.<4.0cm> 4.1 cm LVPW d(<1.2cm) 1.2 cm RV (d.<2.3cm) 3. cm LVPW (sytole) 1.9 cm LV diastole(<5.6CM) 6.3 cm MV E-F(>70mm/sec) cm LV systole 4.7 cm LVOT Diameter 2.0 cm MV exc.(>10mm) cm Est.ejection fraction (50-75%) % Pericardial Effusion N DOPPLER: LVIT cm/sec A cm/sec E 123 cm/sec LA cm/sec RVSP 43.2 mmHg LVOT 79.0 cm/sec AOP1/2T m/s Asc. Ao 127 cm/sec RVOT 38.0 cm/sec RA cm/sec PA 75.0 cm/sec AV Gradient Peak 6.4 mmHg AV Mean 2.8 mmHg AV Area 2.2 cm MV Gradient Peak 6.3 mmHg MV Mean 2.0 mmHg MV Area cm COMMENTS: House Painting Instructor: Herrera JACKSONOE Security Officers And Guards: Marshal Maloney TAPE# PACS DATE OF SERVICE: 02/10/2017 PROCEDURE: Transthoracic echocardiogram. FINDINGS: 1. The left ventricle is dilated. There are regional wall motion abnormalities. The function is markedly depressed. The patient appears to be in atrial fibrillation. Diastology cannot be commented upon. The patient's anterior wall is akinetic, posterior wall is normal function, lateral wall is hypokinetic. ECHOCARDIOGRAM REPORT [id number] SHA LAY JR 2. The left atrium is mildly dilated. 3. The mitral valve has moderate mitral regurgitation. 4. Tricuspid valve has moderate regurgitation with elevated right ventricular systolic pressures of 40-45 mmHg. 5. The aortic valve is normal. 6. The pulmonic valve is normal. 7. The right ventricle is mildly dilated. 8. The right atrium is mildly dilated. CONCLUSIONS: The patient has evidence of ischemic cardiomyopathy with a markedly decreased ejection fraction of 20% to 25% with most notable wall motion abnormality being in the anterior apical segment. TRANSINT:[id number] Voice Confirmation ID: [id number] DOCUMENT ID: [id number] 02/17/2017 Edited to correct date of service, dm. IVONNE MALONEY MD at 1007 CC: [id number] DICTATION DATE: 02/11/17 0941 GROCERY CLERK SELLING: 02/11/17 1038 DIS IN 02/13/17 [id number] [place] [address]
== END 2017-02-13 16:01 | disposition home or self-care (01) | DRG 287 ==
LOC: D.ER 08:27 → D.M2 12:48 → D.SDCHOLD 02-11 14:44 → D.M2 02-11 14:45
PROVIDERS: Emergency Medicine; Internal Medicine Cardiovascular Disease; ADMIT Family Medicine
PROC: B3101ZZ Fluoroscopy of Thoracic Aorta using Low Osmolar Contrast (ICD-10-PCS; 2017-02-12)
PROC: 4A023N7 Measurement of Cardiac Sampling and Pressure, Left Heart, Percutaneous Approach (ICD-10-PCS; 2017-02-12)
PROC: B2111ZZ Fluoroscopy of Multiple Coronary Arteries using Low Osmolar Contrast (ICD-10-PCS; principal; 2017-02-12 10:00)
PROC: B2151ZZ Fluoroscopy of Left Heart using Low Osmolar Contrast (ICD-10-PCS; 2017-02-12 10:00)
DX: I11.0 Hypertensive heart disease with heart failure (principal); F17.203 Nicotine dependence unspecified, with withdrawal; I25.5 Ischemic cardiomyopathy; I50.21 Acute systolic (congestive) heart failure; R00.0 Tachycardia, unspecified; E87.6 Hypokalemia; B18.2 Chronic viral hepatitis C; Z72.89 Other problems related to lifestyle; Z86.73 Personal history of transient ischemic attack (TIA), and cerebral infarction without residual deficits

== ENCOUNTER 2018-06-10 10:18 | Emergency (ER) | payer MEDICARE ==
[~2018-06-10] VITALS: Ht 172.7 cm; Wt 61.4 kg
[~2018-06-10 10:18] MED LIST: COREG 3.1253.125 MG PO; K-DUR20 MEQ PO; LASIX40 MG PO; LISINOPRIL10 MG PO
[2018-06-10 10:22] VITALS: Ht 172.7 cm; Wt 61.4 kg
[2018-06-10 13:17] LABS: BASOPHILS 0.1 % (0-2); EOSINOPHILS 0 % (0-7); HEMATOCRIT 46.7 % (42.0-54.0); HEMOGLOBIN 16.5 g/dL (13.5-17.5); IMMATURE GRANULOCYTES 0.1 % (0-5); LYMPHOCYTES 10.8 % (15-50); MCH 36.2 pg (26.0-34.0); MCHC 35.3 g/dL (31.0-37.0); MCV 102.4 fL (80.0-100.0); MEAN PLATELET VOLUME 10.6 fL (7.4-10.4); MONOCYTES 4.9 % (2-11); NEUTROPHILS 84.1 % (40-80); PLATELET COUNT 156 10x3/uL (130-400); RBC 4.56 10x6/uL (4.20-6.10); RDW 14.3 % (11.5-14.5); WBC 10.1 10x3/uL (4.8-10.8)
[2018-06-10 13:26] LABS: APTT 27.5 SECONDS (22.8-39.4); INR 1.1 (0.85-1.17); PROTIME 13.7 SECONDS (11.6-15.0)
[2018-06-10 13:30] LABS: ALBUMIN 3.5 g/dL (3.4-5.0); ALKALINE PHOSPHATASE 144 U/L (46-116); ALT (SGPT) 25 U/L (10-68); BILIRUBIN - TOTAL 1.42 mg/dL (0.2-1.3); CALC OSMOLALITY 281 mosm/kg (275-300); CALCIUM 8.7 mg/dL (8.5-10.1); CARBON DIOXIDE 21.9 mmol/L (21.0-32.0); CHLORIDE - SERUM 101 mmol/L (98-107); GLUCOSE 89 mg/dL (74-106); POTASSIUM - SERUM 4.4 mmol/L (3.5-5.1); PROTEIN - SERUM 8.2 g/dL (6.4-8.2); SODIUM 141 mmol/L (136-145); UREA NITROGEN 18 mg/dL (7-18); eGFR NON AFRICAN AMERICAN 80 mL/min (90-120)
[2018-06-10] MEDS ORDERED: ULTRAM50 MG PO (16:04)
[2018-06-10 17:06] VITALS: BP 159/87
== END 2018-06-10 17:41 | disposition home or self-care (01) ==
LOC: D.ER 10:18
PROVIDERS: Family Medicine
DX: M54.5 Low back pain (principal); I71.4 Abdominal aortic aneurysm, without rupture; S32.049A Unspecified fracture of fourth lumbar vertebra, initial encounter for closed fracture; X58.XXXA Exposure to other specified factors, initial encounter; Y93.89 Activity, other specified; Y92.89 Other specified places as the place of occurrence of the external cause; Z91.81 History of falling; Z72.89 Other problems related to lifestyle; M25.551 Pain in right hip

== ENCOUNTER 2018-06-14 11:16 | Inpatient (IN) | payer MEDICARE ==
[2018-06-14] VITALS (7 sets, daily range): BP systolic 128–191; BP diastolic 67–99
[~2018-06-14] VITALS: Ht 172.7 cm; Wt 62.4 kg
[~2018-06-14 11:16] MED LIST changes: +ULTRAM50 MG PO
--- NOTE | 2018-06-14 11:54 | NUR ---
PT NOTED TO BE VERY POORLY GROOMED. SMELLS OF FECES AND URINE.
--- NOTE | 2018-06-14 12:11 | NUR ---
PTS MOTHER CALLED TO SAY THAT HE HAS NOT BEEN EATING OR DRINKING AT HOME. HE ONLY LIES IN HIS BED AND DRINKS ALCOHOL.
--- NOTE | 2018-06-14 13:48 | NUR ---
PT STATES HE CAN NOT VOID. I&O CATH PERFORMED. SCROTUM AND PENIS NOTED TO BE EXCORIATED. PANTS AND UNDERWEAR SATURATED WITH DIARRHEA AND URINE. 200ML CLEAR STRAW COLORED URINE RETURNED AND SENT TO LAB. ERP NOTIFIED OF SKIN CONDITION. PT WAS ABLE TO LIFT HIS BOTTOM TO REMOVED PANTS AND MOVE BOTH LEGS WITHOUT DIFFICULTY BUT WITH PAIN.
[2018-06-14 14:00] LABS: APPEARANCE CLEAR (CLEAR); BILIRUBIN NEGATIVE (NEGATIVE); COLOR YELLOW (YELLOW); GLUCOSE NEGATIVE (NEGATIVE); KETONE LARGE mg/dL (NEGATIVE); NITRITE NEGATIVE (NEGATIVE); PROTEIN 1+ mg/dL (NEGATIVE); UROBILINOGEN NORMAL (NORMAL)
[2018-06-14 14:01] LABS: BACTERIA MODERATE /hpf (NONE SEEN); EPITHELIAL CELLS 0-5 /hpf (0-5); RED CELLS - URINE 0-5 /hpf (0-5)
--- NOTE | 2018-06-14 14:20 | NUR ---
PT NOTED TO BE IN A WIDE COMPLEX TACHYCARDIA AT A RATE OF 170. DR. AN NOTIFIED. EKG PERFORMED. ORDER OBTAINED FOR CARDIZEM. PT DENIES CP OR SOB.
--- NOTE | 2018-06-14 15:10 | NUR ---
CARDIZEM TITRATED TO 15MG/HR. HR UNCHANGED. ERP NOTIFIED.
--- NOTE | 2018-06-14 15:21 | NUR ---
CARDIZEM TITRATED TO 20MG/HR. ERP NOTIFIED. WILL CONTINUE TO MONITOR. HR REMAINS UNCHANGED.
[2018-06-14 15:24] LABS: BASOPHILS 0.2 % (0-2); EOSINOPHILS 0.1 % (0-7); HEMATOCRIT 49.5 % (42.0-54.0); HEMOGLOBIN 17.3 g/dL (13.5-17.5); IMMATURE GRANULOCYTES 0.6 % (0-5); LYMPHOCYTES 9.3 % (15-50); MCHC 34.9 g/dL (31.0-37.0); MCV 102.9 fL (80.0-100.0); MEAN PLATELET VOLUME 11.1 fL (7.4-10.4); MONOCYTES 6.9 % (2-11); NEUTROPHILS 82.9 % (40-80); PLATELET COUNT 138 10x3/uL (130-400); RBC 4.81 10x6/uL (4.20-6.10); RDW 14.2 % (11.5-14.5); WBC 8.6 10x3/uL (4.8-10.8)
[2018-06-14 15:51] LABS: ALBUMIN 3.5 g/dL (3.4-5.0); ALKALINE PHOSPHATASE 118 U/L (46-116); ALT (SGPT) 34 U/L (10-68); BILIRUBIN - TOTAL 1.22 mg/dL (0.2-1.3); CALCIUM 8.5 mg/dL (8.5-10.1); CARBON DIOXIDE 17.1 mmol/L (21.0-32.0); CHLORIDE - SERUM 95 mmol/L (98-107); MAGNESIUM - SERUM 2.1 mg/dL (1.8-2.4); POTASSIUM - SERUM 4.4 mmol/L (3.5-5.1); PROTEIN - SERUM 7.8 g/dL (6.4-8.2); SODIUM 135 mmol/L (136-145); eGFR NON AFRICAN AMERICAN 80 mL/min (90-120)
[2018-06-14 16:14] LABS: CALC OSMOLALITY 273 mosm/kg (275-300); GLUCOSE 67 mg/dL (74-106); TROPONIN-I 0.055 ng/mL (0.000-0.060); UREA NITROGEN 29 mg/dL (7-18)
--- NOTE | 2018-06-14 16:20 | NUR ---
PT CONVERTED TO SR WITH LBBB.
--- NOTE | 2018-06-14 18:29 | NUR ---
PT PROVIDED WITH DINNER TRAY. ABLE TO SIT UP IN BED AND FEED HIMSELF.
--- NOTE | 2018-06-14 19:52 | NUR ---
PT URINATED AT THIS TIME. PT REQUESTING TO BE ROLLED TO R SIDE AT THIS TIME. PT COVERED IN TOBACCO PT STATES THAT HE HAS BEEN AT HOME TRYING TO ROLL CIGARETTES LYING DOWN. PT NOTED TO HAVE RED AND EXCORIATED BUTTOCKS/ TESTICLES. PT STATES THAT HE JUST FEELS TO WEAK TO GET UP AND MOVE AROUND PT STATES THAT HE FEELS LIKE HE CAN NO LONGER CARE FOR HIMSELF. INFORMED.
--- NOTE | 2018-06-14 22:03 | NUR ---
ARIVED TO THE FLOOR AT 2109 ON STRETCHER. ALERT AND ORIENTED X4. UPON ASSESSMENT PT STATED HE DRINKS A PINT OF WHISKEY A DAY AND HE ALSO USES IT TO SLEEP. ER REPORTED PT HAD LOT OF DIRT ON HIM THAT APPEARED TO BE TOBACCO. WHEN REMOVED HIS SOCKS BLACK COLOR FLAKES CAME OUT OF SOCKS. ATTEMPTED TO CLEAN HIS FEET AND PT STATED IT WAS PAINFUL. THE DARK FLAKES ARE BM. ASKED IF HE SOMETIMES HAD BM ON HIMSELF AND STATED YES. ASKED WHEN THE LAST T YOLI HE HAD A SHOWER OR GOT A BEDBATH AND STATED "I DONT KNOW". NAILS ARE LONG THICK AND COVERED IN BROWN BM. ALSO HAS DRIED BM UP TO HIS ANKLES. NOTIFIED BACK UP WORKER OF PROBABLE NEGLECT.
--- NOTE | 2018-06-14 22:59 | NUR ---
CALLED DR. ROGERS WITH NEW ORDERS FOR LIBRIUM 25 MG BID, AMBIEN 10 MG AND A BANNANA BAG. PT AWARE. ATTEMPTS TO NOTIFY BROTHER UNSUCESSFUL AND UNABLE TO LEAVE A MESSAGE.
[2018-06-15] VITALS (7 sets, daily range): BP systolic 125–162; BP diastolic 62–77; Ht 172.7 cm; Wt 62.4 kg
[2018-06-15 02:16] LABS: BASOPHILS 0 % (0-2); EOSINOPHILS 0 % (0-7); HEMATOCRIT 41.9 % (42.0-54.0); HEMOGLOBIN 15.1 g/dL (13.5-17.5); IMMATURE GRANULOCYTES 0.3 % (0-5); LYMPHOCYTES 5.4 % (15-50); MCH 36.4 pg (26.0-34.0); MEAN PLATELET VOLUME 10.6 fL (7.4-10.4); MONOCYTES 1.8 % (2-11); NEUTROPHILS 92.5 % (40-80); PLATELET COUNT 142 10x3/uL (130-400); RBC 4.15 10x6/uL (4.20-6.10); RDW 13.9 % (11.5-14.5); WBC 7.8 10x3/uL (4.8-10.8)
[2018-06-15 02:45] LABS: CALCIUM 8.4 mg/dL (8.5-10.1); CHLORIDE - SERUM 97 mmol/L (98-107); CREATININE - SERUM 0.9 mg/dL (0.6-1.3); POTASSIUM - SERUM 4.5 mmol/L (3.5-5.1); SODIUM 132 mmol/L (136-145); UREA NITROGEN 28 mg/dL (7-18); eGFR NON AFRICAN AMERICAN > 90 mL/min (90-120)
[2018-06-15 02:46] LABS: CALC OSMOLALITY 274 mosm/kg (275-300); GLUCOSE 162 mg/dL (74-106); TROPONIN-I 0.065 ng/mL (0.000-0.060)
--- NOTE | 2018-06-15 15:12 | NUR ---
RATIONALE FOR SCD'S EXPLAINED. REFUSED SCD'S
--- NOTE | 2018-06-15 15:35 | NUR ---
Buttocks, back of thighs and perineal area bright red and excoriated. Recommend calmoseptine cream and antifungal powder. Will continue to monitor.
--- NOTE | 2018-06-15 19:39 | NUR ---
RECIEVED UP IN BED WITH EYES OPEN. INCONTINENT OF URINE. CHANGED AND APPLIED CALMOSEPTINE TO BUTTOCK AND SCROTUM. IV TO LEFT FA WITH BANNANA BAG INFUSING AT 125/HR. DENIES ANY NEEDS AT THIS TIME.
--- NOTE | 2018-06-15 23:58 | NUR ---
PT STATES WANTS TO KILL HIMSELF AND HAS VOICED A PLAN. REFUND SPECIALIST AWARE AND SPECIAL EFFECTS MAKEUP ARTIST NOTIFIED WITH NEW ORDER TO TRANSFER TO ICU FOR SUCICIDE WATCH. CALLED REPORT TO DEBORAH IN ICU. ATTEMPTS TO CALL FAMILY UNSUCESSFUL.
[2018-06-16] VITALS (25 sets, daily range): BP systolic 90–155; BP diastolic 50–90
--- NOTE | 2018-06-16 00:10 | NUR ---
ARRIVED TO UNIT VIA STRETCHER ACCOMPANIED BY MED-SURG NURSES. ORIENTED TO ROOM, NURSE, AND CALL [facility] SYSTEM. ATTACHED TO ORACLE E BUSINESS DEVELOPER. CELL PHONE AND WALLET IN PT BELONGING BAG WITH PT LABEL. REPEATING SUICIDAL IDEATIONS. "I JUST WANT TO END IT ALL", "I'M TIRED OF LIVING LIKE THIS", AND "I JUST WANT TO ". SUICIDE PRECAUTIONS INITIATED. SEE SKIN ASSESSMENT FOR FULL DETAILS ON WOUNDS. BED ALARM ON. CBIR. ALL OTHER SAFETY MEASURES IN PLACE.
--- NOTE | 2018-06-16 00:35 | NUR ---
USED CALL SMITH TO REQUEST A CIGARETTE. REQUEST DENIED.
--- NOTE | 2018-06-16 00:37 | NUR ---
PT STATED HIS PLAN WAS TO GO HOME BUY A CHEAP GUN FROM A PAWN SHOP AND ONE BULLET. POINTED TO HIS HOLINESS AND SAID AND PULL THE TRIGGER. EMPLOYMENT SPECIALIST AYDEN WAS IN THE ROOM AT THE TIME.
--- NOTE | 2018-06-16 00:57 | NUR ---
USED CALL SMITH TO ASK NURSE FOR AN EXTRA BLANKET AND A LOCKER ATTENDANT FOR HIS CELL PHONE. WARM BLANKET PROVIDED. CELL PHONE AT NURSING STATION D/T SUICIDE PRECAUTIONS. PT VERBALIZES UNDERSTANDING.
--- NOTE | 2018-06-16 01:36 | NUR ---
PT USED CALL SMITH SYSTEM TO ASK NURSE TO TAKE IV OUT. REQUEST DENIED UNTIL NURSE CAN DISCUSS WITH PROVIDER. PT VERBALIZES UNDERSTANDING.
--- NOTE | 2018-06-16 01:48 | NUR ---
COLOR CONSULTANT ALARMING. PT REMOVED ALL MONITOR EQUIPMENT FROM PERSON. EDUCATED ON IMPORTANCE OF CARDIAC MONITORING. ALL QUESTIONS ANSWERED. VERBALIZES UNDERSTANDING.
--- NOTE | 2018-06-16 02:42 | NUR ---
PT USED CALL [facility] SYSTEM TO ASK NURSE ABOUT THE SOUNDS IN THE UNIT AND WHY THERE IS SO MUCH BEEPING. SUROUNDING VENT MACHINES ALARMING. EDUCATION PROVIDED. VERBALIZES UNDERSTANDING.
[2018-06-16 04:42] LABS: BASOPHILS 0 % (0-2); EOSINOPHILS 0 % (0-7); HEMATOCRIT 40.8 % (42.0-54.0); HEMOGLOBIN 14.3 g/dL (13.5-17.5); IMMATURE GRANULOCYTES 0.2 % (0-5); LYMPHOCYTES 8.6 % (15-50); MCH 35.8 pg (26.0-34.0); MEAN PLATELET VOLUME 11.3 fL (7.4-10.4); MONOCYTES 8.7 % (2-11); NEUTROPHILS 82.5 % (40-80); PLATELET COUNT 142 10x3/uL (130-400); RDW 13.8 % (11.5-14.5); WBC 9.1 10x3/uL (4.8-10.8)
--- NOTE | 2018-06-16 04:46 | NUR ---
OFF MONITOR. UPON ENTERING ROOM, PT LEGS HANGING OFF BED AND MONITOR LEADS ON FLOOR. WHEN ASKED WHERE HE WAS GOING, HE STATED, "I'M GOING TO GET MY BREAKFAST JOSE FRANCISCO." EDUCATION PROVIDED.
[2018-06-16 05:15] LABS: ALBUMIN 2.7 g/dL (3.4-5.0); ALKALINE PHOSPHATASE 92 U/L (46-116); BILIRUBIN - TOTAL 0.83 mg/dL (0.2-1.3); CHLORIDE - SERUM 101 mmol/L (98-107); CREATININE - SERUM 0.8 mg/dL (0.6-1.3); GLUCOSE 124 mg/dL (74-106); MAGNESIUM - SERUM 2.2 mg/dL (1.8-2.4); PROTEIN - SERUM 6.5 g/dL (6.4-8.2); SODIUM 136 mmol/L (136-145); eGFR NON AFRICAN AMERICAN > 90 mL/min (90-120)
[2018-06-16 05:17] LABS: ALT (SGPT) 21 U/L (10-68); CALC OSMOLALITY 275 mosm/kg (275-300); CARBON DIOXIDE 26.5 mmol/L (21.0-32.0); POTASSIUM - SERUM 3.7 mmol/L (3.5-5.1); UREA NITROGEN 20 mg/dL (7-18)
--- NOTE | 2018-06-16 08:04 | NUR ---
UP IN BED EATING BREAKFAST AT THIS TIME. NO ACUTE DISTRESS NOTED. PT ALERT AND ORIENTED. BED ALARM ON. CURRENTLY DENIES SUICIDAL IDEATION, STATING, "I DONT HAVE A GOOD LIFE, BUT I HAVE A LIFE. I JUST WANT TO GO HOME AND LIVE IT." CALL LIGHT IN REACH. WILL CONTINUE PLAN OF CARE.
--- NOTE | 2018-06-16 10:12 | NUR ---
REHAB PRESCREENING Rehab referral received and chart reviewed. Shortly after rehab evaluation ordered this patient began expressing suicidal ideations with a plan. He is not appropriate for acute inpatient rehab. Thank you for this referral! Deya Felipe, COMPUTER SYSTEMS INTEGRATOR Rehab PD
--- NOTE | 2018-06-16 10:32 | NUR ---
LYING IN BED AWAKE AT THIS TIME. NO ACUTE DISTRESS NOTED. CALL LIGHT IN REACH. WILL CONTINUE PLAN OF CARE.
--- NOTE | 2018-06-16 12:32 | NUR ---
WILSON PLACED AT THIS TIME PER PHYSICIAN ORDERS, 16F. YELLOW URING FLOWING INTO CLOSED CONTAINER IMMEDIATELY, 250ML APPROX. ALSO CALMOSEPTINE APPLIED TO EXCORITATED AREAS TO SCROTUM AND GROIN AND PIERRE CARE PROVIDED. PT NOTED TO EXPERIENCE A LARGE AMOUNT OF DISCOMFORT DURING ANY PERSONAL CARE PROVIDED ESPECIALLY TO REPOSITIONING AND PIERRE CARE. ALSO MEPILEX DRESSING APPLIED TO LT BUTTOCKS. PT TURNED Q2H. WILL CONTINUE PLAN OF CARE.
--- NOTE | 2018-06-16 12:58 | NUR ---
1245 REPORT RECIEVED AND CARE ASSUMED OF PT.. PT IS SITTING UP IN THE BED FEEDING SELF LUNCH, DR REYNA HAS MADE ROUNDS AND IS WRITING ORDERS AT THIS TIME.. THERE IS A PIV IN THE LEFT UPPER ARM SALINE LOCKED.. PT STATES HE IS COMFORTABLE AT THIS TIME WHEN ASKED ABOUT HIS PAIN LEVEL..
--- NOTE | 2018-06-16 15:12 | NUR ---
Nutrition follow-up/consult: Diet: Low sodium No po intake charted Pt now in ICU for suicide precautions. Labs reviewed Wt: 136# RDN will change diet order to regular as tolerated and order Boost with meals to increase kcal/protein intake due to pts malnutrition. Thank you for the consult.
--- NOTE | 2018-06-16 16:11 | NUR ---
1400 PT IS SLEEPING BP IS LOW PAIN MED GIVEN EARLIER BY PRIOR NURSE.. 1500 BP IS BETTER.. PT IS AWAKE .. MVI IV FLUID INITIATED PER DR REYNA ORDER.. 1600 PT IS AWAKE CASE MANAGMENT AT THE BEDSIDE DISCUSSING NH PLACEMENT
--- NOTE | 2018-06-16 18:01 | NUR ---
1700 PT IS SERVED DINNER TRAY REPOSITIONED IN THE BED AND HOB ELEVATED.. FEEDINGS SELF.. 1745 MED GIVEN PT WANTS PAIN MED.. GIVEN AT THIS TIME.. 100% DIET EATEN..
--- NOTE | 2018-06-16 19:11 | NUR ---
CARE RESUMED BY THIS NURSE. BEDSIDE SHIFT REPORT GIVEN BY Sil MOON RN USING SBAR. ALL QUESTIONS ANSWERED. PT LAYING IN BED WITH EYES CLOSED. ASSESSMENT COMPLETE. F/C DRAINING TO GRAVITY WITH DARK CONCENTRATED URINE IN DRAINAGE BAG. LEFT UPPER ARM PIV INFUSING MD ORDERED MEDS. SAFETY MEASURES IN PLACE. BED ALARM ON AND CHECKED. VERBALIZES HE WILL NOT GET OUT OF BED. CBIR.
--- NOTE | 2018-06-16 20:21 | MORECARE ---
CASE MANAGEMENT DISCHARGE SUMMARY PATIENT: SHA LAY JR UNIT: [id number] ADM DATE: 06/14/18 AGE: 62 : 54 SEX: M ROOM/BED: D.2303 AUTHOR: NADIA NESBITT PHYSICIAN: REFERRING PHYSICIAN: STEFANY ROEGRS MD DATE OF SERVICE: 06/16/18 Discharge Plan Patient Name: SHA [facility]AY [facility] [facility] 1955 Planned Disposition: Senior Living Facility Anticipated Discharge Date: Discharge Date: Expected LOS: Initial Reviewer: [email or web address] Initial Review Date: 06/16/2018 Generated: 06/16/18 9:21 pm Patient Name: SHA LAY Page [id number] at 2020 All edits/amendments must be made on the electronic document DICTATION DATE: 06/16/182019 BURIAL VAULT DELIVERER AND INSTALLER: WICHO 06/16/182019 RPT#: [id number] DC DATE: STATUS: ADM IN [facility] [address] [place] [address] END OF REPORT
--- NOTE | 2018-06-16 20:25 | NUR ---
HS MEDS GIVEN, SWALLOWED WITHOUT DIFFICULTY.
--- NOTE | 2018-06-16 20:27 | MORECARE ---
CASE MANAGEMENT DISCHARGE SUMMARY PATIENT: SHA LAY UNIT: [id number] ADM DATE: 06/14/18 AGE: 62 : 54 SEX: M ROOM/BED: D.2303 AUTHOR: NADIA NESBITT PHYSICIAN: REFERRING PHYSICIAN: STEFANY ROGERS MD DATE OF SERVICE: 06/16/18 Discharge Plan Patient Name: SHA LAY [facility] [facility] 1955 Planned Disposition: Detention Facility Anticipated Discharge Date: Discharge Date: Expected LOS: Initial Reviewer: [email or web address] Initial Review Date: 06/16/2018 Generated: 06/16/18 9:27 pm DCPIA - Discharge Planning Initial Assessment Updated by [email or web address]: Tiana Solorio on 06/16/18 8:24 pm * Is the patient Alert and Oriented? Yes * How many steps to enter\exit or inside your home? * PCP NO PCP * Pharmacy [address] * Preadmission Environment Home Alone * ADLs Total Dependent * Equipment Cane * List name and contact numbers for known caregivers / representatives who currently or will assist patient after discharge: GERTRUDE LAY - BROTHER- [phone] ARPAN - MOTHER- [phone] * Verbal permission to speak to the caregivers and representatives has been obtained from the patient. Yes * Community resources currently utilized None * Additional services required to return to the preadmission environment? No * Can the patient safely return to the preadmission environment? Yes * Has this patient been hospitalized within the prior 30 days at any hospital? No Last DP export: 06/16/18 7:21 p Patient Name: SHA LAY Page [id number] at 2026 All edits/amendments must be made on the electronic document DICTATION DATE: 06/16/182026 MANAGEMENT AND BUDGET ANALYST: WICHO 06/16/182026 RPT#: [id number] DC DATE: STATUS: ADM IN [facility] [address] [place] [address] END OF REPORT
--- NOTE | 2018-06-16 20:31 | NUR ---
ROLLING AROUND IN BED. RIPPING OFF MARINE REPORTER LINES AND OTHER TUBES. REFUSING ANY ATTEMPT TO GET VS. EDUCATION PROVIDED. WILL TRY AGAIN AT A LATER TIME.
--- NOTE | 2018-06-16 20:40 | MORECARE ---
CASE MANAGEMENT DISCHARGE SUMMARY PATIENT: SHA LAY JR UNIT: [id number] ADM DATE: 06/14/18 AGE: 62 : 54 SEX: M ROOM/BED: D.2303 AUTHOR: DELICIA,DOC PHYSICIAN: REFERRING PHYSICIAN: STEFANY ROEGRS MD DATE OF SERVICE: 06/16/18 Discharge Plan Patient Name: SHA LAY Facility: [facility]:[place] : 1955 Planned Disposition: Assisted Facility Anticipated Discharge Date: Discharge Date: Expected LOS: Initial Reviewer: [email or web address] Initial Review Date: 06/16/2018 Generated: 06/16/18 9:40 pm Comments DCP- Discharge Planning Updated by [email or web address]: Tiana Solorio on 06/16/18 7:[address] LATE ENTRY 06/16/18 @ 1530 Patient Name: SHA LAY Admission Status: ER Accout number: [id number] Admission Date: 06-14-2018 : 1955 Admission Diagnosis: Attending: STEFANY ROGRES Current LOS: 2 Anticipated DC Date: Planned Disposition: Assisted Facility Primary Insurance: MEDICARE A & B Discharge Planning Comments: CM met with patient at bedside. Patient states that he lives alone but he states he can't take care of himself. Patient states that he fell and hurt his back approximately 2 weeks ago. He states since then he hasn't been able to move himself in bed or walk. He states that he has had neighbors coming in occasionally to assist with food and drink (alcohol). Patient is requesting help to get stronger so he can return home. He is willing to go to rehab or a Assisted Facility for Rehab. Patient signed a CATARINO for any facility within the [facility]. Patient requesting that his mother be notified of his admission. CM did call Arpan [phone] his mother and let her know of his admission. She stated that she would be up to see him when it isn't raining but would try to see if his brother would come up to see him. CM will check with inpatient rehab and SNF in am. CM will continue to follow and assist as needed with discharge planning / needs. Relations Specialist: Tiana Solorio DCPIA - Discharge Planning Initial Assessment Updated by [email or web address]: Tiana Solorio on 06/16/18 8:24 pm * Is the patient Alert and Oriented? Yes * How many steps to enter\exit or inside your home? * PCP NO PCP * Pharmacy [address] * Preadmission Environment Home Alone * ADLs Total Dependent * Equipment Cane * List name and contact numbers for known caregivers / representatives who currently or will assist patient after discharge: GERTRUDE LAY - BROTHER- [phone] ARPAN - MOTHER- [phone] * Verbal permission to speak to the caregivers and representatives has been obtained from the patient. Yes * Community resources currently utilized None * Additional services required to return to the preadmission environment? No * Can the patient safely return to the preadmission environment? Yes * Has this patient been hospitalized within the prior 30 days at any hospital? No Last DP export: 06/16/18 7:27 p Patient Name: SHA LAY Page [id number] at 2040 All edits/amendments must be made on the electronic document DICTATION DATE: 06/16/182038 FAMILY DINNER SERVICE SPECIALIST: WICHO 06/16/182038 RPT#: [id number] SC DATE: STATUS: ADM IN [facility] [address] [place] [address] END OF REPORT
--- NOTE | 2018-06-16 21:19 | NUR ---
USED CALL SMITH TO REQUEST WATER. ACCOMMODATED. CONTINUES TO REFUSE CARDIAC MONITORING AND VS CHECKS. WILL ATTEMPT LATER.
--- NOTE | 2018-06-16 22:07 | NUR ---
ASLEEP SHOWING NO SS OF DISTRESS.
--- NOTE | 2018-06-17 00:20 | NUR ---
USED CALL LIGHT TO REQUEST LIGHT TO BE TURNED ON. ACCOMMODATED.
--- NOTE | 2018-06-17 01:02 | NUR ---
PRN PAIN MED GIVEN. PAIN LOCATED IN GROIN AREA AND BACK. 10/10 ON SCALE. SEE MAR FOR FULL DETAILS.
--- NOTE | 2018-06-17 03:05 | NUR ---
USED CALL LIGHT TO ASK NURSE "IS IT REALLY 3 AM?" CONFIRMED.
[2018-06-17 04:48] LABS: BASOPHILS 0 % (0-2); HEMATOCRIT 38.2 % (42.0-54.0); HEMOGLOBIN 13.1 g/dL (13.5-17.5); IMMATURE GRANULOCYTES 0.4 % (0-5); LYMPHOCYTES 29.7 % (15-50); MCH 35.3 pg (26.0-34.0); MCHC 34.3 g/dL (31.0-37.0); MEAN PLATELET VOLUME 11.9 fL (7.4-10.4); MONOCYTES 9.2 % (2-11); NEUTROPHILS 59.7 % (40-80); PLATELET COUNT 124 10x3/uL (130-400); RBC 3.71 10x6/uL (4.20-6.10)
[2018-06-17 05:18] LABS: ALBUMIN 2.4 g/dL (3.4-5.0); ALKALINE PHOSPHATASE 102 U/L (46-116); CALC OSMOLALITY 286 mosm/kg (275-300); CALCIUM 7.5 mg/dL (8.5-10.1); CARBON DIOXIDE 27.5 mmol/L (21.0-32.0); CHLORIDE - SERUM 104 mmol/L (98-107); CREATININE - SERUM 0.8 mg/dL (0.6-1.3); GLUCOSE 130 mg/dL (74-106); MAGNESIUM - SERUM 2.3 mg/dL (1.8-2.4); POTASSIUM - SERUM 3.2 mmol/L (3.5-5.1); PROTEIN - SERUM 5.6 g/dL (6.4-8.2); SODIUM 141 mmol/L (136-145); UREA NITROGEN 23 mg/dL (7-18); eGFR NON AFRICAN AMERICAN > 90 mL/min (90-120)
[2018-06-17 05:19] LABS: ALT (SGPT) 30 U/L (10-68)
[2018-06-17 07:00] VITALS: BP 110/62
--- NOTE | 2018-06-17 07:00 | NUR ---
ASSESSMENT COMPLETE PER FLOWSHEET. NO CO AT TIME.
--- NOTE | 2018-06-17 09:18 | NUR ---
MOVED TO ROOM 2115.
--- NOTE | 2018-06-17 09:18 | NUR ---
BATH GIVEN. CALOSEPTIMINE APPLIED TO SCROTUM. NYSTATIN TO GROIN.
--- NOTE | 2018-06-17 10:00 | NUR ---
MOVED BACK INTO ROOM 2303 DUE TO SI.
[2018-06-17 11:00] VITALS: BP 124/74
--- NOTE | 2018-06-17 12:00 | NUR ---
SITTING UP IN BED EATING LUNCH NO CO AT TIME.
--- NOTE | 2018-06-17 14:19 | MORECARE ---
CASE MANAGEMENT DISCHARGE SUMMARY PATIENT: SHA LAY JR UNIT: [id number] ADM DATE: 06/14/18 AGE: 62 : 54 SEX: M ROOM/BED: D.2303 AUTHOR: DELICIA,DOC PHYSICIAN: REFERRING PHYSICIAN: STEFANY ROGERS MD DATE OF SERVICE: 06/17/18 Discharge Plan Patient Name: SHA LAY Facility: [facility]:[place] : 1955 Planned Disposition: Prison Facility Anticipated Discharge Date: Discharge Date: Expected LOS: Initial Reviewer: [email or web address] Initial Review Date: 06/16/2018 Generated: 06/17/18 3:18 pm Comments DCP- Discharge Planning Updated by [email or web address]: Tiana Solorio on 06/16/18 7:[address] LATE ENTRY 06/16/18 @ 1530 Patient Name: SHA LAY Admission Status: ER Accout number: [id number] Admission Date: 06-14-2018 : 1955 Admission Diagnosis: Attending: STEFANY ROGERS Current LOS: 2 Anticipated DC Date: Planned Disposition: Prison Facility Primary Insurance: MEDICARE A & B Discharge Planning Comments: CM met with patient at bedside. Patient states that he lives alone but he states he can't take care of himself. Patient states that he fell and hurt his back approximately 2 weeks ago. He states since then he hasn't been able to move himself in bed or walk. He states that he has had neighbors coming in occasionally to assist with food and drink (alcohol). Patient is requesting help to get stronger so he can return home. He is willing to go to rehab or a Prison Facility for Rehab. Patient signed a CATARINO for any facility within the [facility]. Patient requesting that his mother be notified of his admission. CM did call Arpan [phone] his mother and let her know of his admission. She stated that she would be up to see him when it isn't raining but would try to see if his brother would come up to see him. CM will check with inpatient rehab and SNF in am. CM will continue to follow and assist as needed with discharge planning / needs. Laundry Marker Supervisor: Tiana Solorio DCPIA - Discharge Planning Initial Assessment Updated by [email or web address]: Tiana Solorio on 06/16/18 8:24 pm * Is the patient Alert and Oriented? Yes * How many steps to enter\exit or inside your home? * PCP NO PCP * Pharmacy [facility] [address] * Preadmission Environment Home Alone * ADLs Total Dependent * Equipment Cane * List name and contact numbers for known caregivers / representatives who currently or will assist patient after discharge: GERTRUDE LAY - BROTHER- [phone] ARPAN Simon MOTHER- [phone] * Verbal permission to speak to the caregivers and representatives has been obtained from the patient. Yes * Community resources currently utilized None * Additional services required to return to the preadmission environment? No * Can the patient safely return to the preadmission environment? Yes * Has this patient been hospitalized within the prior 30 days at any hospital? No External Providers External Provider: [facility] Contact Date: Service Request Date: Service Type: Resolution: Reviewer: Comments: Last DP export: 06/16/18 7:40 p Patient Name: SHA LAY Page [id number] at 1419 All edits/amendments must be made on the electronic document DICTATION DATE: 06/17/181417 TERRAZZO JOURNEYMAN: WICHO 06/17/181417 RPT#: [id number] DC DATE: STATUS: ADM IN [facility] [address] [place] [address] END OF REPORT
[2018-06-17 15:00] VITALS: BP 116/67
--- NOTE | 2018-06-17 15:37 | CN ---
PATIENT NAME:SHA LAY JR MEDICAL RECORD: [id number] : 53 LOCATION:[facility].2303 ADMIT DATE: 06/14/18 ACCOUNT: [id number] CONSULTING PHYSICIAN: BEN SMART MD REFERRING PHYSICIAN: STEFANY ROGERS MD DATE OF CONSULTATION: 06/16/2018 IDENTIFYING DATA: The patient is 62 years old and he is admitted to the hospital on a voluntary basis. CHIEF COMPLAINT: None. HISTORY OF PRESENT ILLNESS: The patient initially had gone to [facility] Emergency Room, apparently he had decubitus ulcer on his perineum. Decubitus ulcer happened because of his ongoing alcoholism and he would be intoxicated and then urinate and defecate on himself. He also would not clean himself properly. Apparently when they were trying to debride the wound, it was hurting him and so he was angry and made some statements about wanting to kill himself and others. He now retracts this. For some reason they sent him here and he was accepted here and when he was accepted here, he was denying any suicidal thoughts and even though he has been irritable and rude to the nursing staff, he has made no further statements. He has no history of wanting to hurt himself. No psychiatric treatment and has never been hospitalized for psychiatric reasons. He says he drinks about a pint of whiskey a day, does not want to quit, says he enjoys drinking and does not think he needs any substance abuse treatment. MENTAL STATUS EXAMINATION: The patient is awake, alert and oriented to person, place, time and situation. His mood is euthymic. His affect is appropriate. Thought processes are goal directed. Memory, concentration, and abstraction abilities are intact. He denies intent to harm himself or others as well as psychotic symptoms. ASSESSMENT: 1. Alcohol abuse. 2. Adjustment disorder with mixed emotional features. 3. Cluster C personality disorder. PLAN: At this time, the patient is not acutely dangerous to himself or others. The suicidal and homicidal statements were impulsive and made when he was angry. He has no history of such behaviors. No evidence of an ongoing mood disorder and no evidence of a thinking disorder. He is clearly an alcoholic, but has no interest in changing his behaviors. I think his long-term prognosis is guarded and will be entirely contingent upon him not drinking, but at this point, he does not require suicide or homicide precautions and does not need outpatient psychiatric care. I would recommend outpatient substance abuse treatment, but he has no interest in this. Obviously, watching him for alcohol withdrawal symptoms as appropriate as it is being done. He also says he wants someone to call his mother and let her know where he is and brief her on his condition. TRANSINT:[id number] Voice Confirmation ID: [id number] DOCUMENT ID: [id number] CONSULT REPORT [id number] SHA LAY JR, BEN SWEENEY at 1537 CC: [id number] DICTATION DATE: 06/16/18 1313 B2B SALES PROFESSIONAL: 06/16/18 1455 [facility] [place] [id number] [place] [address]
--- NOTE | 2018-06-17 16:00 | NUR ---
SITTING UP IN BED EATING SUPPER. NO CO AT TIME.
--- NOTE | 2018-06-17 18:00 | NUR ---
PT CO CARE RECIEVED TODAY. INSTRUCT I HAVE ANSWERED HIS CALL LIGHT AND FULFILLED HIS NEEDS FOR THE LAST 12 HOURS. BATH GIVEN, LINENS CHANGED ALL MEALS SET UP. PAIN MEDS GIVEN WHEN REQUESTED. ASKED HOW I COULD DO THINGS DIFFERENT TODAY. PT STATES NOTHING EXCEPT I WAS RUDE. INSTRUCT HE CAN HAVE ANOTHER NURSE BUT ALL HIS NEEDS WHERE MET TODAY.
--- NOTE | 2018-06-17 19:32 | NUR ---
INTRODUCED SELF TO PATIENT, PATIENT AO X 4, RESP EVEN AND UNLABORED. PATIENT STATED THAT "HAVING A CALL LIGHT WAS NO USE SINCE IT TAKES 30 MINUTES TO GET ANYONE, I SEE PEOPLE JUST SITTING AT COMPUTERS. I NEED ICE WATER AND A PAIN PILL." ADVISED PATIENT IT WAS JUST NOW TIME FOR HIM TO RECEIVE ANOTHER PAIN PILL PER THE ORDER, GOT ICE WATER AND EDUCATED PATIENT AGAIN ABOUT SCHEDULE OF MEDS.
--- NOTE | 2018-06-17 21:37 | NUR ---
ASSESSMENT COMPLETED PER FLOWSHEET, NO C/O AT THIS TIME.
[2018-06-17 21:43] VITALS: BP 109/76
--- NOTE | 2018-06-18 00:36 | NUR ---
PATIENT CONTINUES TO REQUEST CELL PHONE, ADVISED BECAUSE OF THE SUICIDAL IDEATIONS HE WASN'T ABLE TO HAVE IT RIGHT NOW BUT WE DID HAVE IT AT THE NURSES STATION. PATIENT STATED, "BUT I WASN'T SERIOUS ABOUT THE PAWN SHOP" AND "WHAT ABOUT MY PAIN PILL" ADVISED IT WASN'T QUITE TIME FOR PAIN MEDICATION. REEDUCATED ABOUT SCHEDULE OF NARCOTICS. WILL CONTINUE PLAN OF CARE. HELPED REPOSITION PATIENT FROM RIGHT SIDE TO BACK.
[2018-06-18 01:00] VITALS: BP 113/68
--- NOTE | 2018-06-18 01:33 | NUR ---
EMPTIED WILSON, 2000ML OF CLEAR COURT URINE
--- NOTE | 2018-06-18 03:17 | NUR ---
PATIENT HIT CALL LIGHT, WANTED SOMETHING TO EAT PROVIDED TURKEY SANDWICH. BED IN LOWEST POSITION, NO OTHER NEEDS AT THIS TIME. WILL CONTINUE PLAN OF CARE.
[2018-06-18 04:39] VITALS: BP 122/73
[2018-06-18 05:19] LABS: BASOPHILS 0.2 % (0-2); HEMATOCRIT 38.9 % (42.0-54.0); HEMOGLOBIN 13.2 g/dL (13.5-17.5); IMMATURE GRANULOCYTES 0.3 % (0-5); LYMPHOCYTES 27.5 % (15-50); MCH 35.2 pg (26.0-34.0); MCHC 33.9 g/dL (31.0-37.0); MCV 103.7 fL (80.0-100.0); MEAN PLATELET VOLUME 11.4 fL (7.4-10.4); MONOCYTES 8.8 % (2-11); NEUTROPHILS 61.2 % (40-80); PLATELET COUNT 127 10x3/uL (130-400); RBC 3.75 10x6/uL (4.20-6.10); WBC 6.1 10x3/uL (4.8-10.8)
[2018-06-18 05:38] LABS: ALBUMIN 2.3 g/dL (3.4-5.0); ALKALINE PHOSPHATASE 89 U/L (46-116); ALT (SGPT) 26 U/L (10-68); BILIRUBIN - TOTAL 0.35 mg/dL (0.2-1.3); CALCIUM 7.7 mg/dL (8.5-10.1); CHLORIDE - SERUM 104 mmol/L (98-107); CREATININE - SERUM 0.8 mg/dL (0.6-1.3); GLUCOSE 174 mg/dL (74-106); MAGNESIUM - SERUM 2.3 mg/dL (1.8-2.4); POTASSIUM - SERUM 3.7 mmol/L (3.5-5.1); PROTEIN - SERUM 5.6 g/dL (6.4-8.2); SODIUM 139 mmol/L (136-145); eGFR NON AFRICAN AMERICAN > 90 mL/min (90-120)
[2018-06-18 05:39] LABS: CALC OSMOLALITY 282 mosm/kg (275-300); UREA NITROGEN 14 mg/dL (7-18)
--- NOTE | 2018-06-18 05:48 | NUR ---
CHECKED ON PATIENT AFTER NORCO GIVEN, PATIENT STATED NORCO WAS EFFECTIVE. RESP EVEN AND UNLABORED. NO S/SX OF DISTRESS OR DISCOMFORT AT THIS TIME. WILL CONTINUE PLAN OF CARE.
--- NOTE | 2018-06-18 09:12 | NUR ---
Nutrition follow-up: Diet: Regular with boost TID PO intake 100% of meals labs reviewed Wt: 137# Pt now on Med2. PO intake good. RDN following.
--- NOTE | 2018-06-18 09:24 | NUR ---
IV INTACT AND PATENT. OOB WITH PT ASSIST TO AMBULATE. WILL CONT. PLAN OF CARE.
--- NOTE | 2018-06-18 09:30 | MORECARE ---
CASE MANAGEMENT DISCHARGE SUMMARY PATIENT: SHA LAY JR UNIT: [id number] ADM DATE: 06/14/18 AGE: 62 : 54 SEX: M ROOM/BED: D.2104 AUTHOR: DELICIA,DOC PHYSICIAN: REFERRING PHYSICIAN: STEFANY ROGERS MD DATE OF SERVICE: 06/18/18 Discharge Plan Patient Name: SHA LAY Facility: [facility]:[place] : 1955 Planned Disposition: [facility] Facility Anticipated Discharge Date: Discharge Date: Expected LOS: Initial Reviewer: [email or web address] Initial Review Date: 06/16/2018 Generated: 06/18/18 10:29 am Comments DCP- Discharge Planning Updated by [email or web address]: Tiana Solorio on 06/16/18 7:[address] LATE ENTRY 06/16/18 @ 1530 Patient Name: SHA LAY Admission Status: ER Accout number: [id number] Admission Date: 06-14-2018 : 1955 Admission Diagnosis: Attending: STEFANY ROGERS Current LOS: 2 Anticipated DC Date: Planned Disposition: [facility] Facility Primary Insurance: MEDICARE A & B Discharge Planning Comments: CM met with patient at bedside. Patient states that he lives alone but he states he can't take care of himself. Patient states that he fell and hurt his back approximately 2 weeks ago. He states since then he hasn't been able to move himself in bed or walk. He states that he has had neighbors coming in occasionally to assist with food and drink (alcohol). Patient is requesting help to get stronger so he can return home. He is willing to go to rehab or a [facility] Facility for Rehab. Patient signed a CATARINO for any facility within the [facility]. Patient requesting that his mother be notified of his admission. CM did call Arpan [phone] his mother and let her know of his admission. She stated that she would be up to see him when it isn't raining but would try to see if his brother would come up to see him. CM will check with inpatient rehab and SNF in am. CM will continue to follow and assist as needed with discharge planning / needs. Elevator Repairer Apprentice: Tiana Solorio DCPIA - Discharge Planning Initial Assessment Updated by [email or web address]: Tiana Solorio on 06/16/18 8:24 pm * Is the patient Alert and Oriented? Yes * How many steps to enter\exit or inside your home? * PCP NO PCP * Pharmacy [facility] * Preadmission Environment Home Alone * ADLs Total Dependent * Equipment Cane * List name and contact numbers for known caregivers / representatives who currently or will assist patient after discharge: GERTRUDE LAY - BROTHER- [phone] ARPAN - MOTHER- [phone] * Verbal permission to speak to the caregivers and representatives has been obtained from the patient. Yes * Community resources currently utilized None * Additional services required to return to the preadmission environment? No * Can the patient safely return to the preadmission environment? Yes * Has this patient been hospitalized within the prior 30 days at any hospital? No Last DP export: 06/17/18 1:18 p Patient Name: SHA LAY Page [id number] at 0930 All edits/amendments must be made on the electronic document DICTATION DATE: 06/18/18928 PRE KINDERGARTEN TEACHER: WICHO 06/18/18928 RPT#: [id number] DC DATE: STATUS: ADM IN [facility] [address] [place] [address] END OF REPORT
--- NOTE | 2018-06-18 09:34 | NUR ---
ASSESSMENT DONE. DENIES NEEDS.
--- NOTE | 2018-06-18 09:45 | MORECARE ---
CASE MANAGEMENT DISCHARGE SUMMARY PATIENT: SHA LAY JR UNIT: [id number] ADM DATE: 06/14/18 AGE: 62 : 54 SEX: M ROOM/BED: D.2101 AUTHOR: DELICIA,DOC PHYSICIAN: REFERRING PHYSICIAN: STEFANY ROGERS MD DATE OF SERVICE: 06/18/18 Discharge Plan Patient Name: SHA LAY Facility: [facility]:[place] : 1955 Planned Disposition: Residential Facility Anticipated Discharge Date: Discharge Date: Expected LOS: Initial Reviewer: [email or web address] Initial Review Date: 06/16/2018 Generated: 06/18/18 10:44 am Comments DCP- Discharge Planning Updated by [email or web address]: Tiana Solorio on 06/16/18 7:[address] LATE ENTRY 06/16/18 @ 1530 Patient Name: SHA LAY Admission Status: ER Accout number: [id number] Admission Date: 06-14-2018 : 1955 Admission Diagnosis: Attending: STEFANY ROGERS Current LOS: 2 Anticipated DC Date: Planned Disposition: Residential Facility Primary Insurance: MEDICARE A & B Discharge Planning Comments: CM met with patient at bedside. Patient states that he lives alone but he states he can't take care of himself. Patient states that he fell and hurt his back approximately 2 weeks ago. He states since then he hasn't been able to move himself in bed or walk. He states that he has had neighbors coming in occasionally to assist with food and drink (alcohol). Patient is requesting help to get stronger so he can return home. He is willing to go to rehab or a Residential Facility for Rehab. Patient signed a CATARINO for any facility within the [facility]. Patient requesting that his mother be notified of his admission. CM did call Arpan [phone] his mother and let her know of his admission. She stated that she would be up to see him when it isn't raining but would try to see if his brother would come up to see him. CM will check with inpatient rehab and SNF in am. CM will continue to follow and assist as needed with discharge planning / needs. Equipment Service Technician: Tiana Solorio DCPIA - Discharge Planning Initial Assessment Updated by [email or web address]: Tiana Solorio on 06/16/18 8:24 pm * Is the patient Alert and Oriented? Yes * How many steps to enter\exit or inside your home? * PCP NO PCP * Pharmacy [address] * Preadmission Environment Home Alone * ADLs Total Dependent * Equipment Cane * List name and contact numbers for known caregivers / representatives who currently or will assist patient after discharge: GERTRUDE LAY - BROTHER- [phone] ARPAN - MOTHER- [phone] * Verbal permission to speak to the caregivers and representatives has been obtained from the patient. Yes * Community resources currently utilized None * Additional services required to return to the preadmission environment? No * Can the patient safely return to the preadmission environment? Yes * Has this patient been hospitalized within the prior 30 days at any hospital? No External Providers External Provider: [facility] Next Contact Date: Service Request Date: Service Type: Resolution: Reviewer: Comments: Last DP export: 06/18/18 8:30 a Patient Name: SHA LAY Page [id number] at 0945 All edits/amendments must be made on the electronic document DICTATION DATE: 06/18/18943 RECORD CENTER COORDINATOR: WICHO 06/18/18943 RPT#: [id number] DC DATE: STATUS: ADM IN [facility] [address] [place] [address] END OF REPORT
--- NOTE | 2018-06-18 09:53 | MORECARE ---
CASE MANAGEMENT DISCHARGE SUMMARY PATIENT: SHA LAY JR UNIT: [id number] ADM DATE: 06/14/18 AGE: 62 : 54 SEX: M ROOM/BED: D.2104 AUTHOR: DELICIA,DOC PHYSICIAN: REFERRING PHYSICIAN: STEFANY ROGERS MD DATE OF SERVICE: 06/18/18 Discharge Plan Patient Name: SHA LAY Facility: [facility]:[place] : 1955 Planned Disposition: [facility] Facility Anticipated Discharge Date: Discharge Date: Expected LOS: Initial Reviewer: [email or web address] Initial Review Date: 06/16/2018 Generated: 06/18/18 10:53 am Comments DCP- Discharge Planning Updated by [email or web address]: Tiana Solorio on 06/16/18 7:[address] LATE ENTRY 06/16/18 @ 1530 Patient Name: SHA LAY Admission Status: ER Accout number: [id number] Admission Date: 06-14-2018 : 1955 Admission Diagnosis: Attending: STEFANY ROGERS Current LOS: 2 Anticipated DC Date: Planned Disposition: [facility] Facility Primary Insurance: MEDICARE A & B Discharge Planning Comments: CM met with patient at bedside. Patient states that he lives alone but he states he can't take care of himself. Patient states that he fell and hurt his back approximately 2 weeks ago. He states since then he hasn't been able to move himself in bed or walk. He states that he has had neighbors coming in occasionally to assist with food and drink (alcohol). Patient is requesting help to get stronger so he can return home. He is willing to go to rehab or a [facility] Facility for Rehab. Patient signed a CATARINO for any facility within the [facility]. Patient requesting that his mother be notified of his admission. CM did call Arpan [phone] his mother and let her know of his admission. She stated that she would be up to see him when it isn't raining but would try to see if his brother would come up to see him. CM will check with inpatient rehab and SNF in am. CM will continue to follow and assist as needed with discharge planning / needs. Shoddy Mill Worker: Tiana Solorio DCPIA - Discharge Planning Initial Assessment Updated by [email or web address]: Tiana Solorio on 06/16/18 8:24 pm * Is the patient Alert and Oriented? Yes * How many steps to enter\exit or inside your home? * PCP NO PCP * Pharmacy [facility] [address] * Preadmission Environment Home Alone * ADLs Total Dependent * Equipment Cane * List name and contact numbers for known caregivers / representatives who currently or will assist patient after discharge: GERTRUDE LAY - BROTHER- [phone] ARPAN - MOTHER- [phone] * Verbal permission to speak to the caregivers and representatives has been obtained from the patient. Yes * Community resources currently utilized None * Additional services required to return to the preadmission environment? No * Can the patient safely return to the preadmission environment? Yes * Has this patient been hospitalized within the prior 30 days at any hospital? No External Providers External Provider: [facility] Next Contact Date: Service Request Date: Service Type: Resolution: Reviewer: Comments: External Provider: [facility] Next Contact Date: Service Request Date: Service Type: Resolution: Reviewer: Comments: Last DP export: 06/18/18 8:45 a Patient Name: SHA LAY Page 38980 at 0953 All edits/amendments must be made on the electronic document DICTATION DATE: 06/18/18952 DIRECTOR MARKET INTELLIGENCE: WICHO 06/18/18952 RPT#: [id number] DC DATE: STATUS: ADM IN [facility] [address] [place] [address] END OF REPORT
--- NOTE | 2018-06-18 10:01 | MORECARE ---
CASE MANAGEMENT DISCHARGE SUMMARY PATIENT: SHA LAY JR UNIT: [id number] ADM DATE: 06/14/18 AGE: 62 : 54 SEX: M ROOM/BED: D.2102 AUTHOR: DELICIA,DOC PHYSICIAN: REFERRING PHYSICIAN: STEFANY ROGERS MD DATE OF SERVICE: 06/18/18 Discharge Plan Patient Name: SHA LAY Facility: [facility]:[place] : 1955 Planned Disposition: Correction Facility Anticipated Discharge Date: Discharge Date: Expected LOS: Initial Reviewer: [email or web address] Initial Review Date: 06/16/2018 Generated: 06/18/18 11:00 am Comments DCP- Discharge Planning Updated by [email or web address]: Tiana Solorio on 06/16/18 7:[address] LATE ENTRY 06/16/18 @ 1530 Patient Name: SHA LAY Admission Status: ER Accout number: [id number] Admission Date: 06-14-2018 : 1955 Admission Diagnosis: Attending: STEFANY ROGERS Current LOS: 2 Anticipated DC Date: Planned Disposition: Correction Facility Primary Insurance: MEDICARE A & B Discharge Planning Comments: CM met with patient at bedside. Patient states that he lives alone but he states he can't take care of himself. Patient states that he fell and hurt his back approximately 2 weeks ago. He states since then he hasn't been able to move himself in bed or walk. He states that he has had neighbors coming in occasionally to assist with food and drink (alcohol). Patient is requesting help to get stronger so he can return home. He is willing to go to rehab or a Correction Facility for Rehab. Patient signed a CATARINO for any facility within the [facility]. Patient requesting that his mother be notified of his admission. CM did call Arpan [phone] his mother and let her know of his admission. She stated that she would be up to see him when it isn't raining but would try to see if his brother would come up to see him. CM will check with inpatient rehab and SNF in am. CM will continue to follow and assist as needed with discharge planning / needs. Binder Stripper Hand: Tiana Solorio DCPIA - Discharge Planning Initial Assessment Updated by [email or web address]: Tiana Solorio on 06/16/18 8:24 pm * Is the patient Alert and Oriented? Yes * How many steps to enter\exit or inside your home? * PCP NO PCP * Pharmacy [address] * Preadmission Environment Home Alone * ADLs Total Dependent * Equipment Cane * List name and contact numbers for known caregivers / representatives who currently or will assist patient after discharge: GERTRUDE LAY - BROTHER- [phone] ARPAN - MOTHER- [phone] * Verbal permission to speak to the caregivers and representatives has been obtained from the patient. Yes * Community resources currently utilized None * Additional services required to return to the preadmission environment? No * Can the patient safely return to the preadmission environment? Yes * Has this patient been hospitalized within the prior 30 days at any hospital? No External Providers External Provider: [facility] Next Contact Date: Service Request Date: Service Type: Resolution: Reviewer: Comments: External Provider: [facility] Next Contact Date: Service Request Date: Service Type: Resolution: Reviewer: Comments: Last DP export: 06/18/18 8:53 a Patient Name: SHA LAY Page [phone] at 1001 All edits/amendments must be made on the electronic document DICTATION DATE: 06/18/18 1000 LPN HOME HEALTH: WICHO 06/18/18 1000 RPT#: [id number] DC DATE: STATUS: ADM IN [facility] [address] [place] [address] END OF REPORT
--- NOTE | 2018-06-18 10:07 | MORECARE ---
CASE MANAGEMENT DISCHARGE SUMMARY PATIENT: SHA LAY JR UNIT: [id number] ADM DATE: 06/14/18 AGE: 62 : 54 SEX: M ROOM/BED: D.2104 AUTHOR: DELICIA,DOC PHYSICIAN: REFERRING PHYSICIAN: STEFANY ROGERS MD DATE OF SERVICE: 06/18/18 Discharge Plan Patient Name: SHA LAY Facility: [facility]:[place] : 1955 Planned Disposition: Detention Facility Anticipated Discharge Date: Discharge Date: Expected LOS: Initial Reviewer: [email or web address] Initial Review Date: 06/16/2018 Generated: 06/18/18 11:07 am Comments DCP- Discharge Planning Updated by [email or web address]: Tiana Solorio on 06/18/18 9:[address] CM received information back from [facility] and refaxed updated form and records requested. CM also sent records to all local SNF for possible placement. CM awaiting a response from facilities.CM will continue to follow and assist as needed with discharge planning / needs. DCP- Discharge Planning Updated by [email or web address]: Tiana Solorio on 06/18/18 9:[address] LATE ENTRY 06/17/18 @ 1200 CM COMPLETED ANNA AND FAXED IT IN. PHYSICAL THERAPY EVALUATING PATIENT TODAY. CM WILL CONTINUE TO FOLLOW AND ASSIST WITH DISCHARGE PLANNING / NEEDS. DCP- Discharge Planning Updated by [email or web address]: Tiana Solorio on 06/16/18 7:[address] LATE ENTRY 06/16/18 @ 1530 Patient Name: SHA LAY Admission Status: ER Accout number: [id number] Admission Date: 06-14-2018 : 1955 Admission Diagnosis: Attending: STEFANY ROGERS Current LOS: 2 Anticipated DC Date: Planned Disposition: Detention Facility Primary Insurance: MEDICARE A & B Discharge Planning Comments: CM met with patient at bedside. Patient states that he lives alone but he states he can't take care of himself. Patient states that he fell and hurt his back approximately 2 weeks ago. He states since then he hasn't been able to move himself in bed or walk. He states that he has had neighbors coming in occasionally to assist with food and drink (alcohol). Patient is requesting help to get stronger so he can return home. He is willing to go to rehab or a Detention Facility for Rehab. Patient signed a CATARINO for any facility within the [place]. Patient requesting that his mother be notified of his admission. CM did call Arpan [phone] his mother and let her know of his admission. She stated that she would be up to see him when it isn't raining but would try to see if his brother would come up to see him. CM will check with inpatient rehab and SNF in am. CM will continue to follow and assist as needed with discharge planning / needs. Passport Application Examiner: Tiana Solorio DCPIA - Discharge Planning Initial Assessment Updated by [email or web address]: Tiana Solorio on 06/16/18 8:24 pm * Is the patient Alert and Oriented? Yes * How many steps to enter\exit or inside your home? * PCP NO PCP * Pharmacy [address] * Preadmission Environment Home Alone * ADLs Total Dependent * Equipment Cane * List name and contact numbers for known caregivers / representatives who currently or will assist patient after discharge: GERTRUDE LAY - BROTHER- [phone] ARPAN - MOTHER- [phone] * Verbal permission to speak to the caregivers and representatives has been obtained from the patient. Yes * Community resources currently utilized None * Additional services required to return to the preadmission environment? No * Can the patient safely return to the preadmission environment? Yes * Has this patient been hospitalized within the prior 30 days at any hospital? No Last DP export: 06/18/18 9:01 a Patient Name: SHA LAY Page 52054 at 1007 All edits/amendments must be made on the electronic document DICTATION DATE: 06/18/18 1007 SHINGLE INSPECTOR: WICHO 06/18/18 1007 RPT#: [id number] DC DATE: STATUS: ADM IN [facility] [address] [place] [address] END OF REPORT
[2018-06-18 11:47] VITALS: BP 118/66
--- NOTE | 2018-06-18 12:44 | NUR ---
REVIEWED ASSESMENT AND AGREE.
[2018-06-18] MEDS ORDERED: FLOMAX0.4 MG PO (12:59)
[2018-06-18] MEDS ORDERED: Nicoderm [PBKC] TRANSDERM (12:59)
[2018-06-18] MEDS ORDERED: COREG 3.1253.125 MG PO (12:59)
[2018-06-18] MEDS ORDERED: IPRAT-ALBUT 0.5-3 ML UPD (12:59)
[2018-06-18] MEDS ORDERED: ACETAMINOPHEN325 MG PO (13:00)
[2018-06-18] MEDS ORDERED: LIBRIUM25 MG PO (13:00)
[2018-06-18] MEDS ORDERED: LISINOPRIL2.5 MG PO (13:00)
--- NOTE | 2018-06-18 13:20 | MORECARE ---
CASE MANAGEMENT DISCHARGE SUMMARY PATIENT: SHA LAY JR UNIT: [id number] ADM DATE: 06/14/18 AGE: 62 : 53 SEX: M ROOM/BED: D.2107 AUTHOR: DELICIA,DOC PHYSICIAN: REFERRING PHYSICIAN: STEFANY ROGERS MD DATE OF SERVICE: 06/18/18 Discharge Plan Patient Name: SHA LAY Facility: [facility]:[place] : 1955 Planned Disposition: Detention Facility Anticipated Discharge Date: 06/18/18 Discharge Date: Expected LOS: 4 Initial Reviewer: [id number] Initial Review Date: 06/16/2018 Generated: 06/18/18 2:20 pm Comments DCP- Discharge Planning Updated by [email or web address]: Tiana Solorio on 06/18/18 9:[address] CM received information back from [facility] and refaxed updated form and records requested. CM also sent records to all local SNF for possible placement. CM awaiting a response from facilities.CM will continue to follow and assist as needed with discharge planning / needs. DCP- Discharge Planning Updated by [email or web address]: Tiana Solorio on 06/18/18 9:[address] LATE ENTRY 06/17/18 @ 1200 CM COMPLETED ANNA AND FAXED IT IN. PHYSICAL THERAPY EVALUATING PATIENT TODAY. CM WILL CONTINUE TO FOLLOW AND ASSIST WITH DISCHARGE PLANNING / NEEDS. DCP- Discharge Planning Updated by [id number]: Tiana Solorio on 06/16/18 7:[address] LATE ENTRY 06/16/18 @ 1530 Patient Name: SHA LAY Admission Status: ER Accout number: [id number] Admission Date: 06-14-2018 : 1955 Admission Diagnosis: Attending: STEFANY ROGERS Current LOS: 2 Anticipated DC Date: Planned Disposition: Detention Facility Primary Insurance: MEDICARE A & B Discharge Planning Comments: CM met with patient at bedside. Patient states that he lives alone but he states he can't take care of himself. Patient states that he fell and hurt his back approximately 2 weeks ago. He states since then he hasn't been able to move himself in bed or walk. He states that he has had neighbors coming in occasionally to assist with food and drink (alcohol). Patient is requesting help to get stronger so he can return home. He is willing to go to rehab or a Detention Facility for Rehab. Patient signed a CATARINO for any facility within the [facility] [place]. Patient requesting that his mother be notified of his admission. CM did call Arpan [phone] his mother and let her know of his admission. She stated that she would be up to see him when it isn't raining but would try to see if his brother would come up to see him. CM will check with inpatient rehab and SNF in am. CM will continue to follow and assist as needed with discharge planning / needs. Residential Housekeeper: Tiana COLÓN - Discharge Planning Initial Assessment Updated by [email or web address]: Tiana Solorio on 06/16/18 8:24 pm * Is the patient Alert and Oriented? Yes * How many steps to enter\exit or inside your home? * PCP NO PCP * Pharmacy [address] * Preadmission Environment Home Alone * ADLs Total Dependent * Equipment Cane * List name and contact numbers for known caregivers / representatives who currently or will assist patient after discharge: GERTRUDE LAY - BROTHER- [phone] ARPAN - MOTHER- [phone] * Verbal permission to speak to the caregivers and representatives has been obtained from the patient. Yes * Community resources currently utilized None * Additional services required to return to the preadmission environment? No * Can the patient safely return to the preadmission environment? Yes * Has this patient been hospitalized within the prior 30 days at any hospital? No External Providers External Provider: [facility] Next Contact Date: 06/18/2018 Service Request Date: Service Type: Resolution: Reviewer: Comments: Coverage Notice Reviewer: [id number] - Sukh Kevin Notice Issued Date-Time: 06/18/2018 12:55 Notice Type: IM Discharge Notice Notice Delivered To: Patient Relationship to Patient: Hat Trimmer Name: Delivery Method: HAND - Hand Delivered Pamela Days: Prior Verbal Notification: Recipient Understood Notice: Yes Recipient Signature: Yes Med Rec Note Co-signed by Attending: Coverage Notice Comment: Last DP export: 06/18/18 9:07 a Patient Name: SHA LAY Page [id number] at 1320 All edits/amendments must be made on the electronic document DICTATION DATE: 06/18/181318 PROFESSOR/NURSE ANESTHETIST: WICHO 06/18/181318 RPT#: [id number] DC DATE: STATUS: ADM IN [facility] [address] [place] [address] END OF REPORT
--- NOTE | 2018-06-18 13:37 | MORECARE ---
CASE MANAGEMENT DISCHARGE SUMMARY PATIENT: SHA LAY JR UNIT: [id number] ADM DATE: 06/14/18 AGE: 62 : 54 SEX: M ROOM/BED: D.2106 AUTHOR: DELICIA,DOC PHYSICIAN: REFERRING PHYSICIAN: STEFANY ROGERS MD DATE OF SERVICE: 06/18/18 Discharge Plan Patient Name: SHA LAY Facility: [facility]:[place] : 1955 Planned Disposition: Long Term Facility Anticipated Discharge Date: 06/18/18 Discharge Date: Expected LOS: 4 Initial Reviewer: [id number] Initial Review Date: 06/16/2018 Generated: 06/18/18 2:37 pm Comments DCP- Discharge Planning Updated by [email or web address]: Sukh Kevin on 06/18/18 12:[address] Patient Name: SHA LAY Encounter No: [id number] : 1955 Primary Insurance: MEDICARE A & B Anticipated DC Date: 06-18-2018 Planned Disposition: Long Term Facility External Planned Provider: [facility], MEDICARE REHAB BED DCP follow-up note: CM SPOKE TO MAXIMILIAN OF CASE [facility], [facility] HAS ACCEPTED PT FOR REHAB. CM CALLED AND SPOKE TO LAZARUS OF [facility], , [facility] WILL ACCEPT FOR 20 DAY MEDICARE REHAB TODAY. CM SPOKE TO PT IN ROOM, PT IN AGREEMENT WITH REHAB DISCHARGE TODAY TO [facility], ASKED CM TO CALL HIS MOTHER AT [phone]; CM CALLED AND NOTIFIED PT'S MOTHER. IMPORTANT MESSAGE FROM MEDICARE PROVIDED AND EXPLAINED. CM FAXED HOSPITAL UPDATE AND DISCHARGE INFORMATION, TO INCLUDE [facility] APPROVAL FOR 60 DAYS REHAB TO [facility] AT [phone]. CEMENT BREAKER NURSE NOTIFIED. NURSE REPORT TO BE CALLED TO [facility] AT [phone]. [facility] TO ARRANGE VAN TRANSPORTATION FOR LINK ASSEMBLER TODAY. JJ Villeda DCP- Discharge Planning Updated by [id number]: Tiana Solorio on 06/18/18 9:[address] CM received information back from [facility] and refaxed updated form and records requested. CM also sent records to all local SNF for possible placement. CM awaiting a response from facilities.CM will continue to follow and assist as needed with discharge planning / needs. DCP- Discharge Planning Updated by [id number]: Tiana Solorio on 06/18/18 9:[address] LATE ENTRY 06/17/18 @ 1200 CM COMPLETED ANNA AND FAXED IT IN. PHYSICAL THERAPY EVALUATING PATIENT TODAY. CM WILL CONTINUE TO FOLLOW AND ASSIST WITH DISCHARGE PLANNING / NEEDS. DCP- Discharge Planning Updated by [id number]: Tiana Solorio on 06/16/18 7:[address] LATE ENTRY 06/16/18 @ 1530 Patient Name: SHA LAY Admission Status: ER Accout number: [id number] Admission Date: 06-14-2018 : 1955 Admission Diagnosis: Attending: STEFANY ROGERS Current LOS: 2 Anticipated DC Date: Planned Disposition: Long Term Facility Primary Insurance: MEDICARE A & B Discharge Planning Comments: CM met with patient at bedside. Patient states that he lives alone but he states he can't take care of himself. Patient states that he fell and hurt his back approximately 2 weeks ago. He states since then he hasn't been able to move himself in bed or walk. He states that he has had neighbors coming in occasionally to assist with food and drink (alcohol). Patient is requesting help to get stronger so he can return home. He is willing to go to rehab or a Long Term Facility for Rehab. Patient signed a CATARINO for any facility within the [facility]. Patient requesting that his mother be notified of his admission. CM did call Arpan [phone] his mother and let her know of his admission. She stated that she would be up to see him when it isn't raining but would try to see if his brother would come up to see him. CM will check with inpatient rehab and SNF in am. CM will continue to follow and assist as needed with discharge planning / needs. Health And Wellness Coordinator: Tiana Solorio DCPIA - Discharge Planning Initial Assessment Updated by [email or web address]: Tiana Solorio on 06/16/18 8:24 pm * Is the patient Alert and Oriented? Yes * How many steps to enter\exit or inside your home? * PCP NO PCP * Pharmacy [facility] [address] * Preadmission Environment Home Alone * ADLs Total Dependent * Equipment Cane * List name and contact numbers for known caregivers / representatives who currently or will assist patient after discharge: GERTRUDE LAY - BROTHER- [phone] ARPAN - MOTHER- [phone] * Verbal permission to speak to the caregivers and representatives has been obtained from the patient. Yes * Community resources currently utilized None * Additional services required to return to the preadmission environment? No * Can the patient safely return to the preadmission environment? Yes * Has this patient been hospitalized within the prior 30 days at any hospital? No Coverage Notice Reviewer: [id number] Aurora Kevin Notice Issued Date-Time: 06/18/2018 12:55 Notice Type: IM Discharge Notice Notice Delivered To: Patient Relationship to Patient: Inspecting Engineer Name: Delivery Method: HAND - Hand Delivered Pamela Days: Prior Verbal Notification: Recipient Understood Notice: Yes Recipient Signature: Yes Med Rec Note Co-signed by Attending: Coverage Notice Comment: Last DP export: 06/18/18 12:20 p Patient Name: SHA LAY Page 72723 at 1337 All edits/amendments must be made on the electronic document DICTATION DATE: 06/18/181336 WORKERS COMPENSATION ATTORNEY: WICHO 06/18/181336 RPT#: [id number] DC DATE: STATUS: ADM IN [facility] [address] [place] [address] END OF REPORT
--- NOTE | 2018-06-18 13:55 | NUR ---
REPORT CALLED TO RADHA ROWE [facility]
--- NOTE | 2018-06-18 14:21 | NUR ---
DC TO [facility] PER [facility]
--- NOTE | 2018-06-19 08:38 | MORECARE ---
CASE MANAGEMENT DISCHARGE SUMMARY PATIENT: SHA LAY JR UNIT: [id number] ADM DATE: 06/14/18 AGE: 62 : 53 SEX: M ROOM/BED: D.2106 AUTHOR: DELICIA,DOC PHYSICIAN: REFERRING PHYSICIAN: STEFANY ROGERS MD DATE OF SERVICE: 06/19/18 Discharge Plan Patient Name: SHA LAY Facility: [facility]:[place] : 1955 Planned Disposition: [facility] Facility Anticipated Discharge Date: 06/18/18 Discharge Date: 06/18/2018 Expected LOS: 4 Initial Reviewer: [email or web address] Initial Review Date: 06/16/2018 Generated: 06/19/18 9:38 am Comments DCP- Discharge Planning Updated by [email or web address]: Sukh Kevin on 06/18/18 12:[address] Patient Name: SHA LAY Encounter No: [id number] : 1955 Primary Insurance: MEDICARE A & B Anticipated DC Date: 06-18-2018 Planned Disposition: [facility] Facility External Planned Provider: [facility], MEDICARE REHAB BED DCP follow-up note: CM SPOKE TO MAXIMILIAN OF CASE [facility], [facility] HAS ACCEPTED PT FOR REHAB. CM CALLED AND SPOKE TO LAZARUS [facility], , [facility] WILL ACCEPT FOR 20 DAY MEDICARE REHAB TODAY. CM SPOKE TO PT IN ROOM, PT IN AGREEMENT WITH REHAB DISCHARGE TODAY TO [facility], ASKED CM TO CALL HIS MOTHER AT [phone]; CM CALLED AND NOTIFIED PT'S MOTHER. IMPORTANT MESSAGE FROM MEDICARE PROVIDED AND EXPLAINED. CM FAXED HOSPITAL UPDATE AND DISCHARGE INFORMATION, TO INCLUDE [facility] APPROVAL FOR 60 DAYS REHAB TO [facility] AT [phone]. MUD GRINDER NURSE NOTIFIED. NURSE REPORT TO BE CALLED TO [facility] AT [phone]. [facility] TO ARRANGE VAN TRANSPORTATION FOR PURCHASING INTERN TODAY. Sukh Kevin CASE [facility] DCP- Discharge Planning Updated by [email or web address]: Tiana Solorio on 06/18/18 9:[address] CM received information back from [facility] and refaxed updated form and records requested. CM also sent records to all local SNF for possible placement. CM awaiting a response from facilities.CM will continue to follow and assist as needed with discharge planning / needs. DCP- Discharge Planning Updated by [email or web address]: Tiana Solorio on 06/18/18 9:[address] LATE ENTRY 06/17/18 @ 1200 CM COMPLETED ANNA AND FAXED IT IN. PHYSICAL THERAPY EVALUATING PATIENT TODAY. CM WILL CONTINUE TO FOLLOW AND ASSIST WITH DISCHARGE PLANNING / NEEDS. DCP- Discharge Planning Updated by [id number]: Tiana Solorio on 06/16/18 7:[address] LATE ENTRY 06/16/18 @ 1530 Patient Name: SHA LAY Admission Status: ER Accout number: [id number] Admission Date: 06-14-2018 : 1955 Admission Diagnosis: Attending: STEFANY ROGERS Current LOS: 2 Anticipated DC Date: Planned Disposition: [facility] Facility Primary Insurance: MEDICARE A & B Discharge Planning Comments: CM met with patient at bedside. Patient states that he lives alone but he states he can't take care of himself. Patient states that he fell and hurt his back approximately 2 weeks ago. He states since then he hasn't been able to move himself in bed or walk. He states that he has had neighbors coming in occasionally to assist with food and drink (alcohol). Patient is requesting help to get stronger so he can return home. He is willing to go to rehab or a [facility] Facility for Rehab. Patient signed a CATARINO for any facility within the [facility] [place]. Patient requesting that his mother be notified of his admission. CM did call Arpan [phone] his mother and let her know of his admission. She stated that she would be up to see him when it isn't raining but would try to see if his brother would come up to see him. CM will check with inpatient rehab and SNF in am. CM will continue to follow and assist as needed with discharge planning / needs. Press Operator Carbon Blocks: Tiana Solorio DCPIA - Discharge Planning Initial Assessment Updated by [email or web address]: Tiana Solorio on 06/16/18 8:24 pm * Is the patient Alert and Oriented? Yes * How many steps to enter\exit or inside your home? * PCP NO PCP * Pharmacy [facility] [address] * Preadmission Environment Home Alone * ADLs Total Dependent * Equipment Cane * List name and contact numbers for known caregivers / representatives who currently or will assist patient after discharge: GERTRUDE LAY - BROTHER- [phone] ARPAN - MOTHER- [phone] * Verbal permission to speak to the caregivers and representatives has been obtained from the patient. Yes * Community resources currently utilized None * Additional services required to return to the preadmission environment? No * Can the patient safely return to the preadmission environment? Yes * Has this patient been hospitalized within the prior 30 days at any hospital? No Coverage Notice Reviewer: [email or web address] Aurora Kevin Notice Issued Date-Time: 06/18/2018 12:55 Notice Type: IM Discharge Notice Notice Delivered To: Patient Relationship to Patient: Route Relief Driver Name: Delivery Method: HAND - Hand Delivered Pamela Days: Prior Verbal Notification: Recipient Understood Notice: Yes Recipient Signature: Yes Med Rec Note Co-signed by Attending: Coverage Notice Comment: Last DP export: 06/18/18 12:37 p Patient Name: SHA LAY Page 84390 at 0838 All edits/amendments must be made on the electronic document DICTATION DATE: 06/19/18837 CLOTH CHECKER: WICHO 06/19/18837 RPT#: [id number] DC DATE:06/18/18 STATUS: DIS IN [facility] [address] [place] [address] END OF REPORT
== END 2018-06-18 14:22 | DRG 309 ==
LOC: D.ER 11:16 → D.ICU 19:23 → D.M2 19:23 → D.EDHOLD 19:23 → D.ICU 19:23 → D.M2 20:22 → D.ICU 06-16 00:23 → D.M2 06-17 09:19 → D.ICU 06-17 10:32 → D.M2 06-18 08:22
PROVIDERS: Family Medicine; ADMIT Internal Medicine Nephrology
DX: I48.91 Unspecified atrial fibrillation (principal); F17.203 Nicotine dependence unspecified, with withdrawal; E46 Unspecified protein-calorie malnutrition; Z68.1 Body mass index [BMI] 19.9 or less, adult; F10.10 Alcohol abuse, uncomplicated; F43.29 Adjustment disorder with other symptoms; I25.10 Atherosclerotic heart disease of native coronary artery without angina pectoris; I42.9 Cardiomyopathy, unspecified; L89.152 Pressure ulcer of sacral region, stage 2; M54.9 Dorsalgia, unspecified; R32 Unspecified urinary incontinence; F60.89 Other specific personality disorders; Z91.14 Patient's other noncompliance with medication regimen

== ENCOUNTER → 2018-06-24 08:04 | Outpatient (CLI) | payer MEDICARE ==
[2018-06-15 12:57] VITALS: BMI 19.7
[~2018-06-24 08:04] MED LIST changes: +ACETAMINOPHEN325 MG PO; +FLOMAX0.4 MG PO; +IPRAT-ALBUT 0.5-3 ML UPD; +LIBRIUM25 MG PO; +LISINOPRIL2.5 MG PO; +Nicoderm [PBKC] TRANSDERM
== END | disposition home or self-care (01) ==
LOC: D.CT 08:04
PROVIDERS: ATTEND Family Medicine
DX: R53.1 Weakness (principal)